=== PATIENT | female | born 1975 | race Caucasian/White ===

== ENCOUNTER → 2016-08-15 | Outpatient (REF) ==
[~2016-08-15] MED LIST: ATARAX 25MG25 MG/TAB PO; CELEXA10 MG PO; DEPO-PROVER150 MG/M1 IM; FOLIC ACID 11 MG/TA1 PO; MULTI VITAMINS1 TAB PO; PREDNISOLO15 MG/5 M3 PO; PRILOSEC10 MG PO; SODIUM BICARBO650 MG PO; THIAMINE 1100 MG/TAB PO
== END ==
LOC: WSOH 14:03
DX: Z23 Encounter for immunization (principal)

== ENCOUNTER → 2016-09-05 | Outpatient (REF) | LOC: WSOH 09:36 | DX: Z02.89 Encounter for other administrative examinations (principal) ==

== ENCOUNTER 2016-10-10 17:15 | Inpatient (IN) | payer OTHER ==
[2016-10-10] VITALS (148 sets, daily range): BP systolic 115–122; BP diastolic 70–72; PULSE 102–104; TEMP 99.3; O2SAT 96–100
[~2016-10-10] VITALS: Ht 167.6 cm; Wt 73.6 kg
[~2016-10-10 17:15] MED LIST changes: -CELEXA10 MG PO; -MULTI VITAMINS1 TAB PO; -THIAMINE 1100 MG/TAB PO
[2016-10-10 17:58] LABS: BASO % 0.2 % (0.0-2.0); EOS % 0.2 % (0-4.0); GRAN # 11.3 (1.4-6.5); GRAN % 85.9 % (42.2-75.2); HEMOGLOBIN 12.8 g/dl (12.5-16.0); LYMPH # 0.9 (1.2-3.4); LYMPH % 6.9 % (20.0-51.0); MEAN CELL VOLUME 94 fl (80.0-100.0); MEAN CORPUSCULAR HEMOGLOBIN 33 pg (27.0-31.0); MEAN CORPUSCULAR HGB CONC 36 g/dl (33.0-37.0); MEAN PLATELET VOLUME 10.1 fl (7.4-10.4); MONO # 0.8 (0.1-0.6); MONO % 6.2 % (1.7-9.3); PLATELET COUNT 116 K/mm3 (130-400); RED BLOOD COUNT 3.83 M/mm3 (4.10-5.30); REDCELL DISTRIBUTION WIDTH-CV 12.3 % (11.5-14.5); WHITE BLOOD COUNT 13.1 K/mm3 (4.8-10.8)
[2016-10-10 17:59] LABS: HEMATOCRIT 35.8 % (37.0-47.0)
[2016-10-10 18:02] LABS: INR 1.4 (0.8-3.0); PROTHROMBIN TIME 15.3 SECONDS (9.7-12.8)
[2016-10-10 18:12] LABS: ADJUSTED CALCIUM 8.2 mg/dL (8.4-10.2); ALANINE AMINOTRANSFERASE 63 U/L (9-52); ALBUMIN 4.9 gm/dL (3.5-5.0); ALKALINE PHOSPHATASE 114 U/L (50-136); ANION GAP 22 mmol/L (7-16); BLOOD UREA NITROGEN 26 mg/dL (7-17); CALCIUM 8.9 mg/dL (8.4-10.2); CARBON DIOXIDE 25 mmol/L (22-30); CREATININE, serum 0.79 mg/dL (0.52-1.25); GLUCOSE 127 mg/dL (74-106); SODIUM 128 mmol/L (137-145); TOTAL PROTEIN 8.6 gm/dL (6.4-8.2)
[2016-10-10 18:14] LABS: ACETAMINOPHEN < 10 ug/mL (10-30); POTASSIUM 2.4 mmol/L (3.4-5.0); SALICYLATE < 1.0 mg/dL
[2016-10-10 18:15] LABS: CHLORIDE 82 mmol/L (98-107)
[2016-10-10 18:23] LABS: VENOUS BLOOD GAS BE 7.5 (-4-4); VENOUS BLOOD GAS SAO2 25.7 % (60-80)
[2016-10-10 18:24] LABS: VENOUS BLOOD GAS SITE VENIPUNCTURE
[2016-10-10 20:42] LABS: MAGNESIUM 1.2 mg/dL (1.6-2.3)
[2016-10-10] MEDS ORDERED: CELEXA10 MG PO (21:41)
[2016-10-10] MEDS ORDERED: MULTI VITAMINS1 TAB PO (21:41)
[2016-10-11] VITALS (938 sets, daily range): BP systolic 104–131; BP diastolic 72–97; PULSE 73–98; TEMP 98–99.5; O2SAT 81–100
[2016-10-11 00:57] LABS: AMPHETAMINE URINE NEGATIVE; BARBITURATES URINE NEGATIVE; BENZODIAZEPINES URINE POSITIVE; BUPRENORPHINE URINE NEGATIVE; METHADONE URINE NEGATIVE; OPIATES URINE NEGATIVE; OXYCODONE URINE NEGATIVE; PHENCYCLIDINE URINE NEGATIVE; PROPOXYPHENE URINE NEGATIVE; THC CANNABINOIDS URINE NEGATIVE
[2016-10-11 06:07] LABS: BASO % 0.1 % (0.0-2.0); EOS % 0.4 % (0-4.0); GRAN # 6.7 (1.4-6.5); GRAN % 78.7 % (42.2-75.2); LYMPH # 1.1 (1.2-3.4); MEAN CELL VOLUME 98 fl (80.0-100.0); MEAN CORPUSCULAR HGB CONC 34 g/dl (33.0-37.0); MEAN PLATELET VOLUME 10.4 fl (7.4-10.4); MONO # 0.6 (0.1-0.6); MONO % 7.2 % (1.7-9.3); PLATELET COUNT 97 K/mm3 (130-400); RED BLOOD COUNT 3.12 M/mm3 (4.10-5.30); REDCELL DISTRIBUTION WIDTH-CV 12.4 % (11.5-14.5); WHITE BLOOD COUNT 8.5 K/mm3 (4.8-10.8)
[2016-10-11 06:12] LABS: HEMATOCRIT 30.6 % (37.0-47.0); HEMOGLOBIN 10.4 g/dl (12.5-16.0); MEAN CORPUSCULAR HEMOGLOBIN 33 pg (27.0-31.0)
[2016-10-11 06:18] LABS: CALCIUM 8.1 mg/dL (8.4-10.2); CREATININE, serum 0.49 mg/dL (0.52-1.25); MAGNESIUM 2.7 mg/dL (1.6-2.3); POTASSIUM 3.1 mmol/L (3.4-5.0)
[2016-10-11 19:18] LABS: HEPATITIS B SURFACE AB-QL Indeterminate (())
[2016-10-12] VITALS (280 sets, daily range): BP systolic 119–145; BP diastolic 78–113; PULSE 71–106; TEMP 97.7–99.6; O2SAT 87–100
[2016-10-12 06:42] LABS: ALBUMIN 3.8 gm/dL (3.5-5.0); CALCIUM 8.7 mg/dL (8.4-10.2); CREATININE, serum 0.46 mg/dL (0.52-1.25); MAGNESIUM 1.7 mg/dL (1.6-2.3); POTASSIUM 3.2 mmol/L (3.4-5.0); TOTAL PROTEIN 6.8 gm/dL (6.4-8.2)
[2016-10-12 07:05] LABS: BILIRUBIN,TOTAL 2.1 mg/dL (0.0-1.0)
[2016-10-13 02:45] VITALS: BP 137/83; PULSE 91; TEMP 99.4
[2016-10-13 04:27] VITALS: BP 131/84; PULSE 87; TEMP 99.3
[2016-10-13 06:12] VITALS: BP 134/87; PULSE 94; TEMP 98.8
[2016-10-13 06:55] LABS: ALBUMIN 3.7 gm/dL (3.5-5.0); BILIRUBIN,DIRECT 0.8 mg/dL (0.0-0.4); BILIRUBIN,TOTAL 1.4 mg/dL (0.0-1.0); CALCIUM 8.8 mg/dL (8.4-10.2); CREATININE, serum 0.47 mg/dL (0.52-1.25); POTASSIUM 3.1 mmol/L (3.4-5.0); TOTAL PROTEIN 6.8 gm/dL (6.4-8.2)
[2016-10-13 08:37] VITALS: BP 130/87; PULSE 90; TEMP 98.3
[2016-10-13 10:33] VITALS: BP 134/85; PULSE 84; TEMP 98.6
[2016-10-13 11:55] VITALS: BP 135/88; PULSE 82; TEMP 98.6
[2016-10-13] MEDS ORDERED: FOLIC ACID 11 MG/TA1 PO (13:00)
[2016-10-13] MEDS ORDERED: THIAMINE 1100 MG/TAB PO (13:01)
== END 2016-10-13 14:29 | disposition home or self-care (01) | DRG 897 ==
LOC: COL.ER 17:15 → IMCU 20:24 → MEDICAL 20:24
PROVIDERS: Emergency Medicine; Family Medicine
DX: F10.239 Alcohol dependence with withdrawal, unspecified (principal); Y90.0 Blood alcohol level of less than 20 mg/100 ml; K70.30 Alcoholic cirrhosis of liver without ascites; E87.6 Hypokalemia
CPT/HCPCS: 99223-AI; 99232-AI; 99233-AI; 99239; J1650; J2543; J3360; J3411; J3475; J3480; J7030; J7050; Q9967

== ENCOUNTER 2018-05-05 12:49 | Inpatient (IN) | payer SELFPAY ==
[~2018-05-05] VITALS: Ht 167.6 cm; Wt 98.6 kg
[2018-05-05] VITALS (248 sets, daily range): BP systolic 85–115; BP diastolic 43–61; PULSE 84–103; TEMP 97.6–99; O2SAT 70–100
[~2018-05-05 12:49] MED LIST changes: +CELEXA10 MG PO; +MULTI VITAMINS1 TAB PO; +THIAMINE 1100 MG/TAB PO
[2018-05-05 13:35] LABS: BASO % 0.3 % (0.0-2.0); EOS # 0.2 (0.0-0.7); EOS % 1.5 % (0-4.0); GRAN # 9.5 (1.4-6.5); GRAN % 77.3 % (42.2-75.2); LYMPH # 1.1 (1.2-3.4); LYMPH % 8.9 % (20.0-51.0); MEAN CELL VOLUME 91 fl (80.0-100.0); MEAN CORPUSCULAR HGB CONC 29 g/dl (33.0-37.0); MONO # 1.4 (0.1-0.6); MONO % 11.4 % (1.7-9.3); PLATELET COUNT 211 K/mm3 (130-400); RED BLOOD COUNT 1.73 M/mm3 (4.10-5.30); REDCELL DISTRIBUTION WIDTH-CV 24.4 % (11.5-14.5)
[2018-05-05 13:37] LABS: INR 2.1 (0.8-3.0); PROTHROMBIN TIME 23.7 SECONDS (9.7-12.8)
[2018-05-05 13:41] LABS: HEMATOCRIT 15.7 % (37.0-47.0); HEMOGLOBIN 4.5 g/dl (12.5-16.0); MEAN CORPUSCULAR HEMOGLOBIN 26 pg (27.0-31.0)
[2018-05-05] MEDS ORDERED: PRILOSEC 20MG20 MG PO (13:41)
[2018-05-05 13:42] LABS: BILIRUBIN,TOTAL 12.4 mg/dL (0.0-1.0); CALCIUM 8.1 mg/dL (8.4-10.2); CREATININE, serum 0.73 mg/dL (0.52-1.25); TOTAL PROTEIN 7.4 gm/dL (6.4-8.2)
[2018-05-05 13:43] LABS: POTASSIUM 2.6 mmol/L (3.4-5.0)
[2018-05-05 13:51] LABS: HEMOGLOBIN 4.5 g/dl (12.5-16.0)
[2018-05-05 15:18] LABS: PERITONEAL -POLYMORPHONUCLEAR 13.3 % (0-25); PERITONEAL FLUID RBC 0 /mm3 (0-0)
[2018-05-05] MEDS ORDERED: CELEXA10 MG PO (19:41)
[2018-05-05 23:42] LABS: RETIC # 0.06 M/mm3 (0.02-0.16); RETIC % 3.8 % (0.5-3.52)
[2018-05-06] VITALS (438 sets, daily range): BP systolic 96–127; BP diastolic 49–77; PULSE 77–98; TEMP 97.6–99.1; O2SAT 81–100
[2018-05-06 02:10] LABS: HEMATOCRIT 19.4 % (37.0-47.0)
[2018-05-06 02:28] LABS: POTASSIUM 2.6 mmol/L (3.4-5.0)
[2018-05-06 08:26] LABS: BASO # 0.1 (0.0-0.2); BASO % 0.9 % (0.0-2.0); EOS # 0.2 (0.0-0.7); EOS % 1.4 % (0-4.0); GRAN # 8.9 (1.4-6.5); GRAN % 78.7 % (42.2-75.2); HEMATOCRIT 22.1 % (37.0-47.0); LYMPH # 1.1 (1.2-3.4); LYMPH % 9.7 % (20.0-51.0); MEAN CELL VOLUME 86 fl (80.0-100.0); MEAN CORPUSCULAR HEMOGLOBIN 27 pg (27.0-31.0); MEAN CORPUSCULAR HGB CONC 32 g/dl (33.0-37.0); MEAN PLATELET VOLUME 10.4 fl (7.4-10.4); MONO % 8.7 % (1.7-9.3); PLATELET COUNT 182 K/mm3 (130-400); RED BLOOD COUNT 2.56 M/mm3 (4.10-5.30); REDCELL DISTRIBUTION WIDTH-CV 19.9 % (11.5-14.5)
[2018-05-06 08:30] LABS: PROTHROMBIN TIME 22.4 SECONDS (9.7-12.8)
[2018-05-06 08:44] LABS: ALBUMIN 2.8 gm/dL (3.5-5.0); BILIRUBIN,TOTAL 14.4 mg/dL (0.0-1.0); CALCIUM 7.7 mg/dL (8.4-10.2); CREATININE, serum 0.6 mg/dL (0.52-1.25); POTASSIUM 3.1 mmol/L (3.4-5.0)
[2018-05-06 13:28] LABS: HEMATOCRIT 21.1 % (37.0-47.0); HEMOGLOBIN 6.6 g/dl (12.5-16.0)
[2018-05-06 20:50] LABS: HEMATOCRIT 30.1 % (37.0-47.0); HEMOGLOBIN 9.5 g/dl (12.5-16.0)
[2018-05-07] VITALS (7 sets, daily range): BP systolic 101–133; BP diastolic 54–67; PULSE 69–96; TEMP 97.5–99.2
[2018-05-07 09:14] LABS: HEMATOCRIT 28.9 % (37.0-47.0); HEMOGLOBIN 9.1 g/dl (12.5-16.0); MEAN CELL VOLUME 88 fl (80.0-100.0); MEAN CORPUSCULAR HEMOGLOBIN 28 pg (27.0-31.0); MEAN CORPUSCULAR HGB CONC 32 g/dl (33.0-37.0); MEAN PLATELET VOLUME 10.4 fl (7.4-10.4); PLATELET COUNT 269 K/mm3 (130-400); RED BLOOD COUNT 3.27 M/mm3 (4.10-5.30); REDCELL DISTRIBUTION WIDTH-CV 20.2 % (11.5-14.5)
[2018-05-07 09:20] LABS: CALCIUM 8.1 mg/dL (8.4-10.2); CREATININE, serum 0.62 mg/dL (0.52-1.25); MAGNESIUM 1.7 mg/dL (1.6-2.3); PHOSPHOROUS 2.7 mg/dL (2.5-4.5); POTASSIUM 3.5 mmol/L (3.4-5.0)
[2018-05-07 09:31] LABS: ANISOCYTOSIS 3+; BAND 14 % (0-10); BASOPHIL 1 % (0-2); LYMPHOCYTE 8 % (20.0-51.0); NEUTROPHILS 72 % (42.0-75.2); PLATELET ESTIMATE NORMAL (NORMAL)
[2018-05-08] VITALS (10 sets, daily range): BP systolic 91–115; BP diastolic 49–550; PULSE 76–100; TEMP 97.5–99.4
[2018-05-08 08:34] LABS: MEAN CELL VOLUME 89 fl (80.0-100.0); MEAN CORPUSCULAR HGB CONC 32 g/dl (33.0-37.0); MEAN PLATELET VOLUME 10.7 fl (7.4-10.4); PLATELET COUNT 201 K/mm3 (130-400); RED BLOOD COUNT 2.62 M/mm3 (4.10-5.30); REDCELL DISTRIBUTION WIDTH-CV 20.1 % (11.5-14.5)
[2018-05-08 08:40] LABS: HEMATOCRIT 23.2 % (37.0-47.0); HEMOGLOBIN 7.3 g/dl (12.5-16.0); MEAN CORPUSCULAR HEMOGLOBIN 28 pg (27.0-31.0)
[2018-05-08 08:50] LABS: ALBUMIN 2.5 gm/dL (3.5-5.0); BILIRUBIN,TOTAL 11.1 mg/dL (0.0-1.0); CALCIUM 7.7 mg/dL (8.4-10.2); CREATININE, serum 0.69 mg/dL (0.52-1.25); POTASSIUM 3.5 mmol/L (3.4-5.0); TOTAL PROTEIN 6.4 gm/dL (6.4-8.2)
[2018-05-08 13:52] LABS: HEMATOCRIT 23.1 % (37.0-47.0); HEMOGLOBIN 7.3 g/dl (12.5-16.0)
[2018-05-09] VITALS (7 sets, daily range): BP systolic 109–131; BP diastolic 63–69; PULSE 86–99; TEMP 97.3–99.4
[2018-05-09 06:20] LABS: BASO # 0.1 (0.0-0.2); BASO % 0.4 % (0.0-2.0); EOS # 0.3 (0.0-0.7); EOS % 2.5 % (0-4.0); GRAN # 9.9 (1.4-6.5); GRAN % 80.9 % (42.2-75.2); LYMPH # 1.1 (1.2-3.4); LYMPH % 8.6 % (20.0-51.0); MEAN CELL VOLUME 89 fl (80.0-100.0); MEAN CORPUSCULAR HGB CONC 32 g/dl (33.0-37.0); MEAN PLATELET VOLUME 9.8 fl (7.4-10.4); MONO # 0.8 (0.1-0.6); MONO % 6.9 % (1.7-9.3); PLATELET COUNT 160 K/mm3 (130-400); RED BLOOD COUNT 2.67 M/mm3 (4.10-5.30); REDCELL DISTRIBUTION WIDTH-CV 20.7 % (11.5-14.5); RETIC # 0.07 M/mm3 (0.02-0.16); RETIC % 2.6 % (0.5-3.52)
[2018-05-09 06:28] LABS: HEMATOCRIT 23.8 % (37.0-47.0); HEMOGLOBIN 7.5 g/dl (12.5-16.0); MEAN CORPUSCULAR HEMOGLOBIN 28 pg (27.0-31.0)
[2018-05-09 06:33] LABS: POTASSIUM 3.7 mmol/L (3.4-5.0)
[2018-05-09 14:44] LABS: FOLATE (FOLIC ACID) 10.5 ng/mL (7.0-31.4)
[2018-05-10] VITALS (7 sets, daily range): BP systolic 107–119; BP diastolic 57–66; PULSE 91–98; TEMP 98.3–99.4
[2018-05-10 06:59] LABS: MEAN CELL VOLUME 91 fl (80.0-100.0); MEAN CORPUSCULAR HGB CONC 31 g/dl (33.0-37.0); PLATELET COUNT 150 K/mm3 (130-400); RED BLOOD COUNT 2.66 M/mm3 (4.10-5.30); REDCELL DISTRIBUTION WIDTH-CV 20.8 % (11.5-14.5)
[2018-05-10 07:03] LABS: HEMATOCRIT 24.1 % (37.0-47.0); HEMOGLOBIN 7.5 g/dl (12.5-16.0); MEAN CORPUSCULAR HEMOGLOBIN 28 pg (27.0-31.0)
[2018-05-10 07:11] LABS: CALCIUM 7.8 mg/dL (8.4-10.2); CREATININE, serum 0.53 mg/dL (0.52-1.25); POTASSIUM 3.5 mmol/L (3.4-5.0)
[2018-05-10 13:29] LABS: INR 1.8 (0.8-3.0); PROTHROMBIN TIME 20.5 SECONDS (9.7-12.8)
[2018-05-10] MEDS ORDERED: DUO-KAPS1 CAP PO (17:07)
[2018-05-10] MEDS ORDERED: FOLIC ACID 11 MG/TA1 PO (17:07)
[2018-05-10] MEDS ORDERED: THIAMINE 1100 MG/TAB PO (17:07)
[2018-05-10] MEDS ORDERED: QUESTRAN LI4 GM/5 GM PO (17:10)
[2018-05-10] MEDS ORDERED: LACTULOSE10 GM/153 PO (17:11)
[2018-05-10] MEDS ORDERED: FERROUS SU325 MG/TAB PO (17:12)
== END 2018-05-10 20:35 | disposition home or self-care (01) | DRG 433 ==
LOC: COL.ER 12:49 → ICU 14:57 → MEDICAL 05-06 20:03
PROVIDERS: Emergency Medicine; Hospitalist; Internal Medicine; Physician Assistant
PROC: 0W9G3ZZ Drainage of Peritoneal Cavity, Percutaneous Approach (ICD-10-PCS; 2018-05-05)
PROC: 0DJ08ZZ Inspection of Upper Intestinal Tract, Via Natural or Artificial Opening Endoscopic (ICD-10-PCS; 2018-05-07)
PROC: 0DBP8ZX Excision of Rectum, Via Natural or Artificial Opening Endoscopic, Diagnostic (ICD-10-PCS; 2018-05-07)
PROC: 0W9G3ZZ Drainage of Peritoneal Cavity, Percutaneous Approach (ICD-10-PCS; principal; 2018-05-10)
DX: K70.31 Alcoholic cirrhosis of liver with ascites (principal); E87.1 Hypo-osmolality and hyponatremia; I85.10 Secondary esophageal varices without bleeding; F10.10 Alcohol abuse, uncomplicated; E87.6 Hypokalemia; Z87.891 Personal history of nicotine dependence; D50.9 Iron deficiency anemia, unspecified; K62.1 Rectal polyp
CPT/HCPCS: 99223-AI; 99232-AI; 99233-AI; C9113; J0696; J2250; J2405; J2704; J3010; J3480; J7030; J7120; J7510; P9016

== ENCOUNTER 2018-06-11 08:47 | Emergency (ER) | payer OTHER ==
[~2018-06-11] VITALS: Ht 167.6 cm; Wt 83.2 kg
[~2018-06-11 08:47] MED LIST changes: +DUO-KAPS1 CAP PO; +FERROUS SU325 MG/TAB PO; +LACTULOSE10 GM/153 PO; +PRILOSEC 20MG20 MG PO; +QUESTRAN LI4 GM/5 GM PO
[2018-06-11] MEDS ORDERED: ALDACTONE50 MG PO (09:20)
[2018-06-11 09:41] LABS: BASO # 0.1 (0.0-0.2); BASO % 0.7 % (0.0-2.0); EOS # 0.2 (0.0-0.7); EOS % 2.5 % (0-4.0); GRAN # 7.1 (1.4-6.5); GRAN % 75.1 % (42.2-75.2); HEMOGLOBIN 8.4 g/dl (12.5-16.0); LYMPH # 1.3 (1.2-3.4); LYMPH % 13.3 % (20.0-51.0); MEAN CELL VOLUME 93 fl (80.0-100.0); MEAN CORPUSCULAR HEMOGLOBIN 31 pg (27.0-31.0); MEAN CORPUSCULAR HGB CONC 34 g/dl (33.0-37.0); MEAN PLATELET VOLUME 10.8 fl (7.4-10.4); MONO # 0.7 (0.1-0.6); MONO % 7.8 % (1.7-9.3); PLATELET COUNT 167 K/mm3 (130-400); REDCELL DISTRIBUTION WIDTH-CV 22.5 % (11.5-14.5)
[2018-06-11 09:44] LABS: INR 1.5 (0.8-3.0); PROTHROMBIN TIME 17.6 SECONDS (9.7-12.8)
[2018-06-11 09:51] LABS: ALBUMIN 3.5 gm/dL (3.5-5.0); BILIRUBIN,TOTAL 6.9 mg/dL (0.0-1.0); CALCIUM 8.3 mg/dL (8.4-10.2); CREATININE, serum 0.61 mg/dL (0.52-1.25); POTASSIUM 3.7 mmol/L (3.4-5.0); TOTAL PROTEIN 7.6 gm/dL (6.4-8.2)
[2018-06-11] MEDS ORDERED: CONSTULOSE 20G/30ML PO (10:26)
[2018-06-11 10:38] VITALS: BP 125/78; PULSE 101; TEMP 98.2
== END 2018-06-11 10:38 | disposition home or self-care (01) ==
LOC: COL.ER 08:47
PROVIDERS: Emergency Medicine
DX: K70.30 Alcoholic cirrhosis of liver without ascites (principal)
CPT/HCPCS: J1940

== ENCOUNTER 2018-10-06 04:54 | Inpatient (IN) | payer OTHER ==
[~2018-10-06] VITALS: Ht 165.1 cm; Wt 72.5 kg
[2018-10-06] VITALS (362 sets, daily range): BP systolic 89–132; BP diastolic 35–84; PULSE 89–96; TEMP 97.6–98.4; O2SAT 53–100
[~2018-10-06 04:54] MED LIST changes: +ALDACTONE50 MG PO; +CONSTULOSE 20G/30ML PO
[2018-10-06 05:27] LABS: HEMATOCRIT 35.1 % (37.0-47.0); MEAN CELL VOLUME 91 fl (80.0-100.0); MEAN CORPUSCULAR HEMOGLOBIN 34 pg (27.0-31.0); MEAN CORPUSCULAR HGB CONC 37 g/dl (33.0-37.0); MEAN PLATELET VOLUME 11.5 fl (7.4-10.4); PLATELET COUNT 144 K/mm3 (130-400); RED BLOOD COUNT 3.86 M/mm3 (4.10-5.30); REDCELL DISTRIBUTION WIDTH-CV 14.1 % (11.5-14.5)
[2018-10-06 05:42] LABS: ALANINE AMINOTRANSFERASE 47 U/L (9-52); ALBUMIN 4.8 gm/dL (3.5-5.0); ALKALINE PHOSPHATASE 116 U/L (50-136); AST,SGOT 168 U/L (15-37); BILIRUBIN,TOTAL 14.3 mg/dL (0.0-1.0); BLOOD UREA NITROGEN 116 mg/dL (7-17); CALCIUM 7.1 mg/dL (8.4-10.2); CARBON DIOXIDE 29 mmol/L (22-30); GLUCOSE 134 mg/dL (74-106); TOTAL PROTEIN 9.5 gm/dL (6.4-8.2)
[2018-10-06 05:52] LABS: ALCOHOL(ethanol),MEDICAL < 10 mg/dL; CHLORIDE < 50 mmol/L (98-107); POTASSIUM 2.6 mmol/L (3.4-5.0); SODIUM 119 mmol/L (137-145)
[2018-10-06 06:28] LABS: BAND 26 % (0-10); EOSINOPHIL 3 % (0-4); LYMPHOCYTE 7 % (20.0-51.0); METAMYELOCYTE 1 % (0-0); NEUTROPHILS 42 % (42.0-75.2); PLATELET ESTIMATE NORMAL (NORMAL)
[2018-10-06 06:43] LABS: CREATININE, serum 9.73 mg/dL (0.52-1.25)
[2018-10-06 07:07] LABS: HEMATOCRIT 27.9 % (37.0-47.0); HEMOGLOBIN 10.2 g/dl (12.5-16.0)
[2018-10-06 07:14] LABS: MAGNESIUM 1.5 mg/dL (1.6-2.3)
[2018-10-06 07:20] LABS: CALCIUM 5.7 mg/dL (8.4-10.2); POTASSIUM 2.4 mmol/L (3.4-5.0)
[2018-10-06 07:38] LABS: INR 2.6 (0.8-3.0)
[2018-10-06 07:41] LABS: PARTIAL THROMBOPLASTIN TIME 38.3 SECONDS (26.0-37.0)
[2018-10-06 07:57] LABS: CREATININE, serum 8.61 mg/dL (0.52-1.25)
--- NOTE | 2018-10-06 10:21 | NUR ---
Telephone report recieved from DAPHNEY Dorantes (Emergency Department). Pt went to endoscopy lab at 0931
--- NOTE | 2018-10-06 10:34 | NUR ---
Pt arrived to ICU 1 on cart, transfered via slideboard, all lines remain intact. MD Yissel notified of pt arrival. Pt hypotensive, with altered mental status, able to respond slowly, oriented to self, , and that she is in hospital. Pt's parents David and Pat at bedside, with many concerns. 1107 MD Yissel at bedside. DNR code status established. 1215 report given to DAPHNEY Sierra
[2018-10-06] MEDS ORDERED: ALEVE 220MG220 MG PO (11:32)
--- NOTE | 2018-10-06 12:15 | NUR ---
Report received from DAPHNEY Martinez. Patient currently lying in bed with no c/o. VS Hypotensive, HR 80s-90s. Bowling catheter to dependent drainage with no urine in urometer. Dr. Dey gives verbal order for NS bolus 1Liter. Will administer and continue to monitor.
[2018-10-06 12:19] LABS: ARTERIAL BLD GAS O2 SATURATION 98.1 % (92-100); ARTERIAL BLD GAS TCO2 CT 26.2; ARTERIAL BLOOD GAS BASE EXCESS 1.2 (-2-2); ARTERIAL BLOOD GAS PCO2 36.6 mmHg (35-45); ARTERIAL BLOOD GAS pH 7.45 (7.35-7.45)
[2018-10-06 12:39] LABS: INR 2.2 (0.8-3.0); PROTHROMBIN TIME 25.5 SECONDS (9.7-12.8)
[2018-10-06 12:42] LABS: PHOSPHOROUS 7.6 mg/dL (2.5-4.5)
[2018-10-06 12:43] LABS: SALICYLATE < 1.0 mg/dL
[2018-10-06 12:57] LABS: TROPONIN-I 0.128 ng/mL (0.000-0.035)
--- NOTE | 2018-10-06 13:00 | NUR ---
Patient's parents come back from lunch. They are updated on plan of care. Questions answered.
[2018-10-06] MEDS ORDERED: CELEXA 20MG20 MG/TAB PO (13:13)
[2018-10-06] MEDS ORDERED: REQUIP 0.5MG0.5 MG PO (13:13)
[2018-10-06] MEDS ORDERED: ALDACTONE50 MG PO (13:14)
[2018-10-06] MEDS ORDERED: MULTI VITAMINS1 TAB PO (13:14)
[2018-10-06] MEDS ORDERED: FERROUS GL325 MG/TAB (13:15)
[2018-10-06] MEDS ORDERED: PRILOSEC 20MG20 MG PO (13:17)
[2018-10-06] MEDS ORDERED: NATURE'S BLEND100 M2 PO (13:17)
[2018-10-06] MEDS ORDERED: FOLIC ACID0.8 MG PO (13:17)
[2018-10-06] MEDS ORDERED: ALAVERT10 M1 PO (13:18)
[2018-10-06] MEDS ORDERED: MELATONIN5 M1 SL (13:18)
--- NOTE | 2018-10-06 13:20 | NUR ---
Patient's Parents bring in bag of medication from the patient's home supply. Patient is unable to respond appropriately when asked about dosage and frequency of these medications and supplements. Will enter medication/supplement names according to the bottles and dosage of pill on bottle, but unable to record last dose taken or frequency. Will also flag for provider to review.
[2018-10-06 13:57] LABS: COLLECTION METHOD CLEAN CATCH
[2018-10-06 14:17] LABS: AMORPHOUS CRYSTAL Present /uL; HYALINE CAST >12 /lpf; MUCOUS Present /lpf; PH 5 (5-8); URINE APPEARANCE Cloudy; URINE BACTERIA None Seen /hpf; URINE BILIRUBIN Negative (NEGATIVE); URINE BLOOD 3+ (NEGATIVE); URINE COLOR Amber; URINE GLUCOSE 2+ (NEGATIVE); URINE KETONE Negative (NEGATIVE); URINE LEUKOCYTE ESTERASE Trace (NEGATIVE); URINE NITRATE Negative (NEGATIVE); URINE PROTEIN(semi-quant) 2+ (NEGATIVE); URINE RBC >50 /hpf; URINE UROBILINOGEN >=4.0 mg/dL (NEGATIVE)
[2018-10-06 14:27] LABS: TRICYCLIC ANTIDEPRESS URINE NEGATIVE
[2018-10-06 15:59] LABS: HEMATOCRIT 24.1 % (37.0-47.0); HEMOGLOBIN 8.8 g/dl (12.5-16.0)
[2018-10-06 16:31] LABS: POTASSIUM 2.9 mmol/L (3.4-5.0)
[2018-10-06 16:32] LABS: CALCIUM 5.9 mg/dL (8.4-10.2)
[2018-10-06 16:33] LABS: CREATININE, serum 7.72 mg/dL (0.52-1.25)
--- NOTE | 2018-10-06 17:10 | NUR ---
Dr. Davis rounds on patient at this time. He is updated on patient's situation. He is updated with recent recommendations received from [facility] Dr. Thibodeaux. Dr. Davis gives verbal order to proceed with recommendations from [facility] doctor. Will continue to monitor.
--- NOTE | 2018-10-06 18:15 | NUR ---
Blood transfusion initiated. Patient shows no s/s reaction. VS remain stable with Levophed use. Patient is afebrile. Will continue to monitor closely.
--- NOTE | 2018-10-06 19:47 | NUR ---
REPORT GIVEN TO DAPHNEY SMITH. IV DRIPS AND FLUIDS REVIEWED. PRBC INFUSION FINISHES WHILE WE ARE IN ROOM DOING REPORT. PATIENT AWAKE AND ALERT, BUT STILL VERY CONFUSED. PLAN OF CARE REVIEWED. CALL LIGHT WITHIN REACH FOR PATIENT. CARE TURNED OVER AT THIS TIME.
--- NOTE | 2018-10-06 19:51 | NUR ---
Patient assessment completed and charted at this time, please see documentation for details. Patient resting in bed, alert and oriented. Slow to answer, but appropriate. Will continue to monitor and assess.
[2018-10-06 20:51] LABS: CREATININE, serum 7.41 mg/dL (0.52-1.25); POTASSIUM 2.8 mmol/L (3.4-5.0)
[2018-10-06 21:17] LABS: HEMATOCRIT 26.1 % (37.0-47.0); HEMOGLOBIN 9.2 g/dl (12.5-16.0)
[2018-10-07] VITALS (728 sets, daily range): BP systolic 114–133; BP diastolic 51–66; PULSE 87–109; TEMP 97.9–98.6; O2SAT 82–100
--- NOTE | 2018-10-07 00:15 | NUR ---
Assessment completed at this time. Upon entering room, patient had broken arriola catheter tubing, stating "she didn't need it anymore." Explained importance of measuring urine output. Different arriola reinserted, mitts in place at this time.
[2018-10-07 00:26] LABS: CALCIUM 6.5 mg/dL (8.4-10.2)
[2018-10-07 00:59] LABS: CREATININE, serum 7.33 mg/dL (0.52-1.25); POTASSIUM 2.7 mmol/L (3.4-5.0)
[2018-10-07 04:37] LABS: ARTERIAL BLD GAS O2 SATURATION 95.5 % (92-100); ARTERIAL BLD GAS TCO2 CT 21.9; ARTERIAL BLOOD GAS BASE EXCESS -2.5 (-2-2); ARTERIAL BLOOD GAS PCO2 31.3 mmHg (35-45); ARTERIAL BLOOD GAS pH 7.44 (7.35-7.45)
[2018-10-07 05:34] LABS: MEAN CELL VOLUME 95 fl (80.0-100.0); MEAN CORPUSCULAR HGB CONC 35 g/dl (33.0-37.0); MEAN PLATELET VOLUME 10.7 fl (7.4-10.4); PLATELET COUNT 78 K/mm3 (130-400); RED BLOOD COUNT 2.46 M/mm3 (4.10-5.30); REDCELL DISTRIBUTION WIDTH-CV 15.2 % (11.5-14.5)
[2018-10-07 05:35] LABS: HEMOGLOBIN 8.2 g/dl (12.5-16.0); MEAN CORPUSCULAR HEMOGLOBIN 33 pg (27.0-31.0)
[2018-10-07 05:36] LABS: HEMATOCRIT 23.3 % (37.0-47.0)
[2018-10-07 05:42] LABS: INR 1.8 (0.8-3.0); PROTHROMBIN TIME 20.8 SECONDS (9.7-12.8)
[2018-10-07 05:46] LABS: ALBUMIN 3.5 gm/dL (3.5-5.0); BILIRUBIN,TOTAL 8.9 mg/dL (0.0-1.0); CALCIUM 6.3 mg/dL (8.4-10.2); PHOSPHOROUS 5.3 mg/dL (2.5-4.5); TOTAL PROTEIN 6.5 gm/dL (6.4-8.2)
[2018-10-07 06:09] LABS: CREATININE, serum 5.65 mg/dL (0.52-1.25)
[2018-10-07 06:10] LABS: POTASSIUM 2.3 mmol/L (3.4-5.0)
[2018-10-07 07:20] LABS: BAND 30 % (0-10); LYMPHOCYTE 4 % (20.0-51.0); NEUTROPHILS 48 % (42.0-75.2)
[2018-10-07 07:22] LABS: HYPOCHROMIA 1+
[2018-10-07 07:23] LABS: PLATELET ESTIMATE NORMAL (NORMAL)
--- NOTE | 2018-10-07 08:58 | NUR ---
Initial visit; Patient's family thanked Allergist/Pediatric Pulmonologist for looking in on Geetha and letting them know of the availability of Spiritual Care around the clock at [place]. Allergist/Pediatric Pulmonologist will continue to look in on them.
--- NOTE | 2018-10-07 10:14 | NUR ---
KEEGAN and KEEGAN hutchins met with the patient's parents, Antonia, to discuss discharge plan. 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 The patient's PCP is Dr. Ran Oneal and she receives her medications at [facility]. The patient's parents report that the patient did have difficulties affording her meds. The patient's parents report that the patient does not have a DPOA-HC completed and that she does not have any children or is . KEEGAN and KEEGAN hutchins provided support and will continue to follow.
[2018-10-07 13:32] LABS: CALCIUM 7.6 mg/dL (8.4-10.2)
[2018-10-07 13:43] LABS: CREATININE, serum 4.47 mg/dL (0.52-1.25); POTASSIUM 2.1 mmol/L (3.4-5.0)
[2018-10-07 16:12] LABS: CALCIUM 8.4 mg/dL (8.4-10.2)
[2018-10-07 16:21] LABS: CREATININE, serum 4.13 mg/dL (0.52-1.25); POTASSIUM 2.4 mmol/L (3.4-5.0)
--- NOTE | 2018-10-07 20:00 | NUR ---
PT AWARE OF PERSON AND DATE OF ONLY. UNABLE TO GIVE CORRECT MONTH, YEAR, AND PLACE. PT HAS BRUISING TO RIGHT HIP, RIGHT LATERAL AND LOWER BUTTOCK, AND BILAT KNEES. PT IS INTERMITTENTLY RESTLESS - MANAGED TO REMOVE MITTS AND FOLLOWING BLOOD PRESSURE CUFF. MITTS REPLACED AND BP CUFF PUT BACK ON. PT REDIRECTED. PT CONSISTENTLY GRINDING TEETH.
[2018-10-07 20:53] LABS: CALCIUM 8.5 mg/dL (8.4-10.2); CREATININE, serum 3.89 mg/dL (0.52-1.25)
[2018-10-07 20:57] LABS: POTASSIUM 2.6 mmol/L (3.4-5.0)
[2018-10-07 21:12] LABS: TROPONIN-I 0.087 ng/mL (0.000-0.035)
[2018-10-08] VITALS (899 sets, daily range): BP systolic 109–126; BP diastolic 61–86; PULSE 77–98; TEMP 98.1–98.8; O2SAT 74–100
--- NOTE | 2018-10-08 | NUR ---
PT ORIENTED TO PERSON, , AND PRESIDENT OF US ONLY. PT UNAWARE OF DATE GIVING WRONG MONTH AND YEAR. PT UNABLE TO STATE PRESENT LOCATION; STATE OR TOWN.
--- NOTE | 2018-10-08 04:00 | NUR ---
PT A&O X4 AND FOUND TO HAVE REMOVED MITTS. PT STATES HER THROAT IS DRY. PT SAT UP AND OFFERED WATER, WHICH WAS TOLERATED WELL. PT CONVERSED WITHOUT DIFFICULTY OR CONFUSION.
[2018-10-08 04:34] LABS: INR 1.7 (0.8-3.0); MEAN CELL VOLUME 97 fl (80.0-100.0); MEAN CORPUSCULAR HGB CONC 35 g/dl (33.0-37.0); PROTHROMBIN TIME 19.5 SECONDS (9.7-12.8); RED BLOOD COUNT 1.99 M/mm3 (4.10-5.30); REDCELL DISTRIBUTION WIDTH-CV 15.3 % (11.5-14.5)
[2018-10-08 04:39] LABS: ALBUMIN 4.1 gm/dL (3.5-5.0); BILIRUBIN,TOTAL 9.4 mg/dL (0.0-1.0); CALCIUM 9.2 mg/dL (8.4-10.2); CREATININE, serum 2.96 mg/dL (0.52-1.25); MAGNESIUM 2.5 mg/dL (1.6-2.3); TOTAL PROTEIN 6.9 gm/dL (6.4-8.2)
[2018-10-08 04:50] LABS: POTASSIUM 2.6 mmol/L (3.4-5.0)
[2018-10-08 04:52] LABS: HEMATOCRIT 19.3 % (37.0-47.0); HEMOGLOBIN 6.7 g/dl (12.5-16.0); MEAN CORPUSCULAR HEMOGLOBIN 34 pg (27.0-31.0); PLATELET COUNT 48 K/mm3 (130-400)
[2018-10-08 05:05] LABS: ANISOCYTOSIS 1+; BAND 14 % (0-10); LYMPHOCYTE 9 % (20.0-51.0); METAMYELOCYTE 14 % (0-0); NEUTROPHILS 55 % (42.0-75.2); PLATELET ESTIMATE DECREASED (NORMAL)
[2018-10-08 05:06] LABS: OVALOCYTES 1+; SCHISTOCYTES 1+; TEAR DROP CELLS 1+
[2018-10-08 05:40] LABS: MEAN CELL VOLUME 97 fl (80.0-100.0); MEAN CORPUSCULAR HGB CONC 35 g/dl (33.0-37.0); MEAN PLATELET VOLUME 9.2 fl (7.4-10.4); RED BLOOD COUNT 1.99 M/mm3 (4.10-5.30); REDCELL DISTRIBUTION WIDTH-CV 15.4 % (11.5-14.5)
[2018-10-08 06:16] LABS: HEMATOCRIT 19.2 % (37.0-47.0); HEMOGLOBIN 6.7 g/dl (12.5-16.0); MEAN CORPUSCULAR HEMOGLOBIN 34 pg (27.0-31.0); PLATELET COUNT 44 K/mm3 (130-400)
[2018-10-08 06:29] LABS: BAND 11 % (0-10); LYMPHOCYTE 6 % (20.0-51.0); METAMYELOCYTE 15 % (0-0); NEUTROPHILS 57 % (42.0-75.2); PLATELET ESTIMATE DECREASED (NORMAL)
[2018-10-08 06:30] LABS: OVALOCYTES 1+; SCHISTOCYTES 1+
[2018-10-08 10:21] LABS: PATHOLOGY DIFF REVIEW OK
--- NOTE | 2018-10-08 12:56 | NUR ---
CRITICAL TROPONIN LEVELED REPORTED TO LIBORIO FUCHS. TROPONIN TRENDING DOWN. PT NOT C/O ANY CHEST PAIN AT THIS TIME. NO NEW ORDERS.
--- NOTE | 2018-10-08 13:08 | NUR ---
report given to DAPHNEY manning.
[2018-10-08 14:37] LABS: HEMATOCRIT 21.6 % (37.0-47.0); HEMOGLOBIN 7.6 g/dl (12.5-16.0)
[2018-10-08 14:40] LABS: CALCIUM 9.7 mg/dL (8.4-10.2); CREATININE, serum 2.2 mg/dL (0.52-1.25); POTASSIUM 3.3 mmol/L (3.4-5.0)
--- NOTE | 2018-10-08 18:40 | NUR ---
PATIENT HAS HAD A TOTAL OF 4 BRIGHT BLOODY LIQUID STOOLS TODAY.
--- NOTE | 2018-10-08 19:30 | NUR ---
Bedside report received from DAPHNEY Griffiths.
--- NOTE | 2018-10-08 19:33 | NUR ---
REPORT GIVEN TO DAPHNEY CUETO.
--- NOTE | 2018-10-08 20:00 | NUR ---
Assessment complete. Patient resting in bed at this time. Patient falls asleep intermittently but is easily awakened by her name. She is oriented x3 at this time and alert. Assessment reveals a small amount of edema in her ankles. Patient has no complaints of pain. No further needs. Will continue to monitor. Call light within reach
[2018-10-08 20:12] LABS: CALCIUM 9.8 mg/dL (8.4-10.2); CREATININE, serum 1.81 mg/dL (0.52-1.25); POTASSIUM 3.5 mmol/L (3.4-5.0)
[2018-10-08 20:32] LABS: HEMATOCRIT 21.7 % (37.0-47.0); HEMOGLOBIN 7.7 g/dl (12.5-16.0)
[2018-10-09] VITALS (875 sets, daily range): BP systolic 121–130; BP diastolic 72–92; PULSE 80–86; TEMP 98.4–99; O2SAT 66–100
--- NOTE | 2018-10-09 | NUR ---
Assessment complete. Patient is awake watching TV at this time. No complaints of pain or discomfort. Vitals remain stable. No changes from previous assessment. Will continue to monitor. Call light within reach.
[2018-10-09 02:23] LABS: HEMATOCRIT 22.9 % (37.0-47.0); HEMOGLOBIN 7.8 g/dl (12.5-16.0)
[2018-10-09 02:33] LABS: CALCIUM 10.1 mg/dL (8.4-10.2); CREATININE, serum 1.5 mg/dL (0.52-1.25)
--- NOTE | 2018-10-09 04:00 | NUR ---
Patient resting in bed watching tv. Assessment complete. No complaints of pain. Vitals remain stable. No further needs at this time. Will continue to monitor. Call light within reach.
[2018-10-09 05:04] LABS: BASO % 0.4 % (0.0-2.0); EOS # 0.1 (0.0-0.7); EOS % 1.2 % (0-4.0); GRAN # 2.8 (1.4-6.5); GRAN % 54.9 % (42.2-75.2); LYMPH # 0.4 (1.2-3.4); MEAN CELL VOLUME 95 fl (80.0-100.0); MEAN CORPUSCULAR HGB CONC 35 g/dl (33.0-37.0); MEAN PLATELET VOLUME 10.1 fl (7.4-10.4); MONO # 1.6 (0.1-0.6); MONO % 31.6 % (1.7-9.3); RED BLOOD COUNT 2.34 M/mm3 (4.10-5.30); REDCELL DISTRIBUTION WIDTH-CV 16.7 % (11.5-14.5)
[2018-10-09 05:07] LABS: HEMATOCRIT 22.3 % (37.0-47.0); HEMOGLOBIN 7.9 g/dl (12.5-16.0); MEAN CORPUSCULAR HEMOGLOBIN 34 pg (27.0-31.0)
[2018-10-09 05:09] LABS: INR 1.7 (0.8-3.0); PLATELET COUNT 44 K/mm3 (130-400); PROTHROMBIN TIME 19.4 SECONDS (9.7-12.8)
[2018-10-09 05:13] LABS: ALBUMIN 4.1 gm/dL (3.5-5.0); CALCIUM 9.9 mg/dL (8.4-10.2); CREATININE, serum 1.4 mg/dL (0.52-1.25)
[2018-10-09 05:17] LABS: POTASSIUM 2.9 mmol/L (3.4-5.0)
--- NOTE | 2018-10-09 07:10 | NUR ---
Received report from DAPHNEY Jones. Patient was resting in bed. Medications varified.
--- NOTE | 2018-10-09 07:20 | NUR ---
Bedside report given to DAPHNEY Lindquist and DAPHNEY Schofield
[2018-10-09 10:01] LABS: CALCIUM 9.9 mg/dL (8.4-10.2); CREATININE, serum 1.23 mg/dL (0.52-1.25); POTASSIUM 3.4 mmol/L (3.4-5.0)
--- NOTE | 2018-10-09 19:07 | NUR ---
Bedside report received from DAPHNEY Schofield and DAPHNEY Lindquist
--- NOTE | 2018-10-09 19:16 | NUR ---
Gave bedside report to DAPHNEY Jones.
--- NOTE | 2018-10-09 20:00 | NUR ---
Assessment complete at this time. Patient awake and resting in bed. She attempted to eat part of her dinner and ate about 30% and drank all of her ensure. Patient states that she was having some nausea earlier, but isnt anymore. No complaints of pain, just some generalized soreness from being in bed. Vitals are stable. Patient has no other needs at this time. Will continue to monitor. Call light within reach.
[2018-10-10] VITALS (1009 sets, daily range): BP systolic 109–126; BP diastolic 65–74; PULSE 74–97; TEMP 98.2–98.9; O2SAT 85–100
--- NOTE | 2018-10-10 | NUR ---
Assessment complete. No changes from previous assessment. Patient is asleep in bed but easily awakens to name. Vitals remain stable. Patient has no other needs at this time. Will continue to monitor. Call light within reach.
--- NOTE | 2018-10-10 04:00 | NUR ---
Patient sleeping at this time. No complaints of pain. Vitals remain stable. Assessment complete. She has no further needs at this time. Will continue to monitor. Call light within reach.
--- NOTE | 2018-10-10 07:05 | NUR ---
Bedside report given to DAPHNEY Schofield and DAPHNEY Lindquist
--- NOTE | 2018-10-10 07:20 | NUR ---
Got report from DAPHNEY Jones. Patient was resting in bed. Medications varified.
[2018-10-10 07:24] LABS: MEAN CELL VOLUME 98 fl (80.0-100.0); MEAN CORPUSCULAR HGB CONC 34 g/dl (33.0-37.0); MEAN PLATELET VOLUME 9.7 fl (7.4-10.4); RED BLOOD COUNT 2.45 M/mm3 (4.10-5.30); REDCELL DISTRIBUTION WIDTH-CV 16.6 % (11.5-14.5)
[2018-10-10 07:32] LABS: HEMATOCRIT 24.1 % (37.0-47.0); HEMOGLOBIN 8.3 g/dl (12.5-16.0); MEAN CORPUSCULAR HEMOGLOBIN 34 pg (27.0-31.0)
[2018-10-10 07:33] LABS: PLATELET COUNT 47 K/mm3 (130-400)
--- NOTE | 2018-10-10 07:39 | NUR ---
Critical Lab was called. Lab is improving at this time as expected. No need to notify physician at this time.
[2018-10-10 08:05] LABS: ALBUMIN 3.6 gm/dL (3.5-5.0); CALCIUM 9.6 mg/dL (8.4-10.2); CREATININE, serum 0.87 mg/dL (0.52-1.25); MAGNESIUM 1.4 mg/dL (1.6-2.3); POTASSIUM 3.4 mmol/L (3.4-5.0); TOTAL PROTEIN 6.4 gm/dL (6.4-8.2)
[2018-10-10 08:26] LABS: BILIRUBIN UNCONJUGATED 4.8 mg/dL (0.0-1.1); BILIRUBIN,DIRECT 7.5 mg/dL (0.0-0.4); BILIRUBIN,TOTAL 12.3 mg/dL (0.0-1.0)
--- NOTE | 2018-10-10 11:12 | NUR ---
PATIENT IN BED WATCHING TV. PATIENTS PARENTS ARE IN THE ROOM. WILL CONTINUE TO MONITOR PATIENT.
[2018-10-10 11:41] LABS: ANISOCYTOSIS 1+; BAND 3 % (0-10); EOSINOPHIL 1 % (0-4); HYPOCHROMIA 1+; LYMPHOCYTE 30 % (20.0-51.0); NEUTROPHILS 60 % (42.0-75.2)
--- NOTE | 2018-10-10 18:05 | NUR ---
PATIENT IS SITTING IN BED WATCHING TV. PATIENT DENIES PAIN AT THIS TIME.
--- NOTE | 2018-10-10 19:15 | NUR ---
GAVE REPORT TO DAPHNEY MALIK.
--- NOTE | 2018-10-10 21:40 | NUR ---
PT ALERT AND ORIENTED. PT OFFERED AND ACCEPTED BATHING WIPES FOR PERSONAL AND HAND HYGIENE.
[2018-10-11] VITALS (456 sets, daily range): BP systolic 101–121; BP diastolic 47–71; PULSE 74–96; TEMP 98.2–98.7; O2SAT 85–100
[2018-10-11 05:32] LABS: MEAN CELL VOLUME 99 fl (80.0-100.0); MEAN CORPUSCULAR HGB CONC 34 g/dl (33.0-37.0); MEAN PLATELET VOLUME 10.1 fl (7.4-10.4); PLATELET COUNT 52 K/mm3 (130-400); RED BLOOD COUNT 2.57 M/mm3 (4.10-5.30); REDCELL DISTRIBUTION WIDTH-CV 16.6 % (11.5-14.5)
[2018-10-11 05:36] LABS: HEMATOCRIT 25.5 % (37.0-47.0); HEMOGLOBIN 8.7 g/dl (12.5-16.0); MEAN CORPUSCULAR HEMOGLOBIN 34 pg (27.0-31.0)
[2018-10-11 05:46] LABS: ALBUMIN 3.2 gm/dL (3.5-5.0); BILIRUBIN,TOTAL 8.1 mg/dL (0.0-1.0); CALCIUM 9.2 mg/dL (8.4-10.2); CREATININE, serum 0.67 mg/dL (0.52-1.25); MAGNESIUM 1.2 mg/dL (1.6-2.3); PHOSPHOROUS 2.6 mg/dL (2.5-4.5); POTASSIUM 3.8 mmol/L (3.4-5.0)
--- NOTE | 2018-10-11 07:22 | NUR ---
RECEIVED REPORT FROM DAPHNEY MALIK. PATIENT WAS ASLEEP IN BED. MEDICATIONS AND LABS VARIFIED.
[2018-10-11 08:59] LABS: BAND 3 % (0-10); EOSINOPHIL 2 % (0-4); LYMPHOCYTE 2 % (20.0-51.0); METAMYELOCYTE 2 % (0-0); MYELOCYTE 1 % (0-0); NEUTROPHILS 84 % (42.0-75.2)
[2018-10-11 09:06] LABS: ANISOCYTOSIS 2+
[2018-10-11 09:09] LABS: PLATELET ESTIMATE DECREASED (NORMAL)
--- NOTE | 2018-10-11 12:58 | NUR ---
CALLED AND GAVE REPORT TO DAPHNEY HUTCHINSON.
--- NOTE | 2018-10-11 13:32 | NUR ---
GATHERED PATIENTS BELONGINGS AND TRANSFERED PATIENT TO MEDIAL FLOOR VIA WHEELCHAIR. TRANSFERED CARE TO DAPHNEY HUTCHINSON,
--- NOTE | 2018-10-11 13:45 | NUR ---
PT recieved from ICU. Pt sitting in chair alert and oriented, breathing even and unlabored. Oriented pt to room, set chair alarm. Pt denies any needs at this time. Call light in reach.
--- NOTE | 2018-10-11 18:22 | NUR ---
Pt lying in bed. eyes closed, wakens to verbal stimuli. Pt is alert and oriented, breathing even and unlabored. Pt has arriola catheter in place, urine is a light orange to dark yellow color. Pt denies pain and denies any needs at this time. Call light in reach.
--- NOTE | 2018-10-11 18:32 | NUR ---
This RN reviewed Brynn Morrison's documentation and agrees with findings. Pt has had uneventful afternoon, sat up in chair by window for several hours, she is alert and partially oriented with slight conversation delay, cooperative. PICC site free of redness, slight swelling present will monitor. Bowling is gravity draining clear orangey-yellow urine. Pt denies pain, SOB. Resting in bed with alarm on, call light in reach
--- NOTE | 2018-10-11 19:20 | NUR ---
Report given to Alexandra SHELLEY, pt resting, ate little for dinner, denies needs, call light in reach
--- NOTE | 2018-10-11 21:28 | NUR ---
PT RESTING IN BED A+oX4 reports no pain. no SOA. pt is jaundice. reports have a BM during the day. shift assessment complete. no needs at this time. call light in reach
--- NOTE | 2018-10-11 23:27 | NUR ---
pt resting in bed. arriola draining freely, no kinks. PICC flushes well, blood return noted. no needs at this time. call llight in reach
[2018-10-12] VITALS (11 sets, daily range): BP systolic 95–105; BP diastolic 37–56; PULSE 92–103; TEMP 98.3–99.3
--- NOTE | 2018-10-12 01:58 | NUR ---
pt reports not being able to sleep. awake reading paper. no pain. no needs. arriola draining, no kinks. call light in reach
--- NOTE | 2018-10-12 05:33 | NUR ---
pt had an uneventful night. score a 0 on detox scale. arriola draining freely, no kinks. pt skin and eyes jaundice. reports no pain. pt reports having a hard time falling alseep. no needs at this time. call light inreach. bed alarm on
[2018-10-12 07:02] LABS: HEMATOCRIT 24.3 % (37.0-47.0); HEMOGLOBIN 8.1 g/dl (12.5-16.0); MEAN CELL VOLUME 100 fl (80.0-100.0); MEAN CORPUSCULAR HEMOGLOBIN 33 pg (27.0-31.0); MEAN CORPUSCULAR HGB CONC 33 g/dl (33.0-37.0); MEAN PLATELET VOLUME 10.8 fl (7.4-10.4); PLATELET COUNT 54 K/mm3 (130-400); RED BLOOD COUNT 2.43 M/mm3 (4.10-5.30); REDCELL DISTRIBUTION WIDTH-CV 16.4 % (11.5-14.5)
[2018-10-12 07:15] LABS: BILIRUBIN,TOTAL 5.5 mg/dL (0.0-1.0); CREATININE, serum 0.64 mg/dL (0.52-1.25); MAGNESIUM 1.5 mg/dL (1.6-2.3); POTASSIUM 3.5 mmol/L (3.4-5.0); TOTAL PROTEIN 5.6 gm/dL (6.4-8.2)
--- NOTE | 2018-10-12 07:16 | NUR ---
report given to DAPHNEY Martinez
[2018-10-12 07:17] LABS: INR 1.7 (0.8-3.0)
--- NOTE | 2018-10-12 08:50 | NUR ---
PICC intact right upper arm with sterile dressing change done with insertion site cleansed with chloraprep x 1, chlorhexidine impregnated disk applied, skin prep, stat lock, and tegaderm applied. no signs or symptoms of IV complications noted. no concerns voiced. re-wrapped with negrita to protect catheter.
[2018-10-12 11:15] LABS: BAND 1 % (0-10); HYPOCHROMIA 1+; LYMPHOCYTE 21 % (20.0-51.0); METAMYELOCYTE 3 % (0-0); NEUTROPHILS 69 % (42.0-75.2)
[2018-10-12 11:16] LABS: ANISOCYTOSIS 1+
--- NOTE | 2018-10-12 22:10 | NUR ---
PT RESTING IN BED A+OX4. reports no pain. skins and eye jaundice. pt reports urninating after arriola removal, no issues. shift assessment complete. no needs at this time. call light inreach. bed alarm on
--- NOTE | 2018-10-13 01:57 | NUR ---
pt has been sleeping. reports no pain. no needs at this time. call light in reach
[2018-10-13 01:58] VITALS: BP 103/51; PULSE 95; TEMP 98.6
[2018-10-13 03:35] VITALS: BP 103/50; PULSE 92; TEMP 98.8
--- NOTE | 2018-10-13 04:44 | NUR ---
pt resting in bed throughout night. reports no pain. PICC flushes well, blood return noted. no needs at this time. call light in reach
[2018-10-13 06:11] LABS: MEAN CELL VOLUME 101 fl (80.0-100.0); MEAN CORPUSCULAR HGB CONC 34 g/dl (33.0-37.0); MEAN PLATELET VOLUME 11.1 fl (7.4-10.4); RED BLOOD COUNT 2.25 M/mm3 (4.10-5.30); REDCELL DISTRIBUTION WIDTH-CV 16.6 % (11.5-14.5)
[2018-10-13 06:15] LABS: HEMATOCRIT 22.7 % (37.0-47.0); HEMOGLOBIN 7.7 g/dl (12.5-16.0); MEAN CORPUSCULAR HEMOGLOBIN 34 pg (27.0-31.0)
[2018-10-13 06:17] VITALS: BP 105/56; PULSE 90; TEMP 99
[2018-10-13 06:17] LABS: PLATELET COUNT 49 K/mm3 (130-400)
[2018-10-13 06:51] LABS: CALCIUM 8.5 mg/dL (8.4-10.2); CREATININE, serum 0.59 mg/dL (0.52-1.25); MAGNESIUM 1.3 mg/dL (1.6-2.3); POTASSIUM 3.9 mmol/L (3.4-5.0)
--- NOTE | 2018-10-13 07:41 | NUR ---
REPORT GIVEN TO GLENN SHELLEY
--- NOTE | 2018-10-13 08:00 | NUR ---
PATIENT SITTING UP IN BED THIS MORNING. PATIENT IS A&O. TACHYCARDIA NOTED, OTHERWISE VSS. TELE IN PLACE. BOWEL SOUNDS ACTIVE ALL FOUR QUADRANTS. PATIENT TOLERATING FOOD & LIQUIDS WITHOUT ANY N/V. POSITIVE PEDAL PULSES EQUAL BILATERALLY. 2+ PITTING-EDEMA TO BLE NOTED. SCD'S TO BLE. PICC TO RUE. PATIENT DENIES PAIN. NO OTHER NEEDS AT THIS TIME.
[2018-10-13 08:24] VITALS: BP 104/52; PULSE 97; TEMP 98.3
--- NOTE | 2018-10-13 08:59 | NUR ---
SW met with patient about DPOA, living will, and alcohol treament options. Patient reported she would like to complete both DPOA and living will forms. Patient was also interested in a list of alcohol treatment options. SW provided both DPOA and living will forms. SW will return when patient is ready to sign. SW also provided alcohol trreatment options and offered to contact [facility] with patient. Patient would like to look over options but did not want to contact [facility] at this time.
[2018-10-13 09:19] LABS: BAND 5 % (0-10); LYMPHOCYTE 15 % (20.0-51.0); MYELOCYTE 7 % (0-0); NEUTROPHILS 61 % (42.0-75.2)
[2018-10-13 09:21] LABS: DOHLE BODIES PRESENT; HYPOCHROMIA 1+; TOXIC GRANULATION PRESENT
[2018-10-13 09:22] LABS: PLATELET ESTIMATE DECREASED (NORMAL)
[2018-10-13] MEDS ORDERED: PROTONIX 40MG T40 MG PO (10:28)
[2018-10-13] MEDS ORDERED: XIFAXAN550 MG PO (10:40)
[2018-10-13] MEDS ORDERED: LACTULOSE10 GM/153 PO (10:41)
[2018-10-13] MEDS ORDERED: MAG-OX 400400 MG/TAB PO (10:42)
[2018-10-13 10:44] VITALS: BP 108/44; PULSE 104; TEMP 98.1
--- NOTE | 2018-10-13 11:08 | NUR ---
KEEGAN attended clinical rounds. Patient will discharge home today with her parents. Patient is working with Matt from [employer] to start a medicaid application. reported to patient that one of her medications is very expensive because she does not have any insurance. KEEGAN and pharmacist did research and found a program through the tool radial drill press set up operator to provided assistance for medications. KEEGAN provided program application to patient and informed her that her PCP will need to sign it. KEEGAN and TYRONE also witnessed signature for DPOA and living will. Patient was provided original and 3 copies. KEEGAN also placed a copy of both forms on chart.
[2018-10-13 12:21] VITALS: BP 99/43; PULSE 101; TEMP 98.6
--- NOTE | 2018-10-13 15:05 | NUR ---
DISCHARGE INSTRUCTIONS REVIEWED WITH PATIENT AND FAMILY. ALL QUESTIONS ANSWERED. PATIENT PERSONAL BELONGINGS GATHERED.
--- NOTE | 2018-10-13 15:20 | NUR ---
PATIENT AMBULATED TO PERSONAL VEHICLE WITH MEDICAL STAFF. PATIENT DISCHARGED.
== END 2018-10-13 15:20 | disposition home or self-care (01) | DRG 871 ==
LOC: COL.ER 04:54 → ICU 07:22 → MEDICAL 10-11 13:25
PROVIDERS: Anesthesiology Critical Care Medicine; Emergency Medicine; Internal Medicine; Internal Medicine Gastroenterology; Physician Assistant; ADMIT Family Medicine
PROC: 0DJ08ZZ Inspection of Upper Intestinal Tract, Via Natural or Artificial Opening Endoscopic (ICD-10-PCS; 2018-10-06)
PROC: 02HV33Z Insertion of Infusion Device into Superior Vena Cava, Percutaneous Approach (ICD-10-PCS; principal; 2018-10-06 09:45)
DX: A41.81 Sepsis due to Enterococcus (principal); R65.21 Severe sepsis with septic shock; G93.41 Metabolic encephalopathy; N17.9 Acute kidney failure, unspecified; N39.0 Urinary tract infection, site not specified; K92.0 Hematemesis; K76.6 Portal hypertension; E87.1 Hypo-osmolality and hyponatremia; E83.42 Hypomagnesemia; K20.9 Esophagitis, unspecified; D64.9 Anemia, unspecified; K70.30 Alcoholic cirrhosis of liver without ascites; D69.6 Thrombocytopenia, unspecified; F10.20 Alcohol dependence, uncomplicated; E80.6 Other disorders of bilirubin metabolism; K31.89 Other diseases of stomach and duodenum; E87.6 Hypokalemia
CPT/HCPCS: 99233-AI; C1751; C9113; J0330; J0610; J0696; J1100; J1720; J1815; J2060; J2354; J2405; J2543; J2597; J2765; J3010; J3370; J3411; J3430; J3475; J3480; J7030; J7040; J7050; J7060; J7070; P9016; P9047

== ENCOUNTER 2019-01-17 05:54 | Inpatient (IN) | payer OTHER ==
[~2019-01-17] VITALS: Ht 167.6 cm; Wt 68.4 kg
[~2019-01-17 05:54] MED LIST changes: +ALAVERT10 M1 PO; +ALEVE 220MG220 MG PO; +CELEXA 20MG20 MG/TAB PO; +FERROUS GL325 MG/TAB; +FOLIC ACID0.8 MG PO; +MAG-OX 400400 MG/TAB PO; +MELATONIN5 M1 SL; +NATURE'S BLEND100 M2 PO; +PROTONIX 40MG T40 MG PO; +REQUIP 0.5MG0.5 MG PO; +XIFAXAN550 MG PO
[2019-01-17 06:48] LABS: BASO # 0.1 (0.0-0.2); BASO % 0.9 % (0.0-2.0); EOS # 0.3 (0.0-0.7); GRAN # 4.5 (1.4-6.5); GRAN % 68.6 % (42.2-75.2); HEMOGLOBIN 11.7 g/dl (12.5-16.0); LYMPH % 15.6 % (20.0-51.0); MEAN CELL VOLUME 96 fl (80.0-100.0); MEAN CORPUSCULAR HEMOGLOBIN 33 pg (27.0-31.0); MEAN CORPUSCULAR HGB CONC 34 g/dl (33.0-37.0); MEAN PLATELET VOLUME 10.7 fl (7.4-10.4); MONO # 0.7 (0.1-0.6); MONO % 10.3 % (1.7-9.3); PLATELET COUNT 85 K/mm3 (130-400); RED BLOOD COUNT 3.56 M/mm3 (4.10-5.30); REDCELL DISTRIBUTION WIDTH-CV 14.4 % (11.5-14.5)
[2019-01-17 06:50] LABS: HEMATOCRIT 34.1 % (37.0-47.0)
[2019-01-17 06:56] LABS: INR 1.3 (0.8-3.0); PROTHROMBIN TIME 15.4 SECONDS (9.7-12.8)
[2019-01-17 06:59] LABS: PARTIAL THROMBOPLASTIN TIME 39.9 SECONDS (26.0-37.0)
[2019-01-17 07:01] LABS: ALBUMIN 4.3 gm/dL (3.5-5.0); BILIRUBIN,TOTAL 3.5 mg/dL (0.0-1.0); CALCIUM 9.2 mg/dL (8.4-10.2); CREATININE, serum 0.59 (0.52-1.25); MAGNESIUM 1.5 mg/dL (1.6-2.3); POTASSIUM 3.1 mmol/L (3.4-5.0); TOTAL PROTEIN 8.1 gm/dL (6.4-8.2)
--- NOTE | 2019-01-17 10:20 | NUR ---
EZIO NOWAK DROPPED PATIENT OFF AND TOLD ELECTRIC DOLLY OPERATOR BUT NOT NURSE. AUTOCLAVE OPERATOR WENT TO ROOM TO DO ADMIT VITALS AND PATIENT HAD TAKEN ALL HER CLOTHES OFF AND WAS GETTING INTO THE SHOWER. PATIENT CURRENTLY SHOWERING WITHOUT IV COVERED AND DOESN'T SEEM INTERESTED IN FOLLOWING HOSPITAL RULES.
--- NOTE | 2019-01-17 10:45 | NUR ---
PATIENT DISCOVERED TO HAVE LEFT UNIT WITHOUT HER SHOES, WATCH OR CELLPHONE. PATEINT ETOH WAS 237 IN ER. ER NURSE REPORTS THAT PATIENT TRIED TO LEAVE AMA WHILE IN ER AND WAS STUMBLING AROUND AND COULDN'T FIND HER WAY OUT. SECURITY CALLED.
--- NOTE | 2019-01-17 11:05 | NUR ---
PATIENT DISCOVERED BACK IN HER ROOM. MICROFILM DUPLICATING UNIT SUPERVISOR AND NURSE WENT IN TO TALK TO PATIENT ABOUT LEAVING UNIT. PATIENT ADMITED SHE WENT OUTSIDE BUT WASN'T CLEAR WHY. PATIENT SAID SHE "WAS COLD" AND "NEEDED TO GO FOR A WALK FOR HER RESTLESS LEGS". PATIENT DIDN'T HAVE A GOOD REASON FOR GOING OUTSIDE WITHOUT HER SHOES. PATIENT IS ALSO CURRENTLY LAYING IN BED NAKED. HER STREET CLOTHES ARE AT THE BEDSIDE. PATIENT ALSO PUT BACK ON HER ON TELE UNIT. PATIENT WAS RECENTLY ADMITED IN OCTOBER FOR ISSUES RELATED TO ETOH. PATIENT WILL NOT DISCLOSE HOW MUCH ALCOHOL SHE DRANK LAST NIGHT. SHE DID REPORT HER LAST DRINK AT 2AM. PATIENT REPORTS NOT TAKING HER HOME MEDS FOR 2 WEEKS AND FEELING NAUSEATED THE LAST DAY OR TWO. PATIENT APPEARS A LITTLE JAUNDICE. AST 82. ETOH 237. K+ 3.1
[2019-01-17 11:33] VITALS: BP 121/60; PULSE 76; TEMP 98.2
[2019-01-17 14:23] VITALS: BP 115/64; PULSE 84; TEMP 98.5
[2019-01-17 15:54] VITALS: BP 116/60; PULSE 94; TEMP 98.9
[2019-01-17 15:57] LABS: HEMOGLOBIN 10.1 g/dl (12.5-16.0)
[2019-01-17 15:58] LABS: HEMATOCRIT 29.6 % (37.0-47.0)
--- NOTE | 2019-01-17 16:35 | NUR ---
NURSE CALLED AND REPORTED THAT PATIENT WAS SEEN SNEAKING OFF THE UNIT BY THE MEDICAL STAFF. WHEN SUPERVISOR PARTICLEBOARD TRIED TO STOP HER AND MORENO WHERE SHE WAS GOING THE PATIENT REPLIED "I'M OUT OF HERE". SECURITY CALLED AGAIN. PATIENT LEFT AMA WITH IV INPLACE. UNABLE TO LOCATE PATIENT.
--- NOTE | 2019-01-17 16:50 | NUR ---
SENIOR DATA MODELER ATTEMPTING TO CALL PATIENT AT HOME. PATIENT LIVES WITH HER PARENTS. PATIENT DIDN'T LIKELY WALK HOME.
--- NOTE | 2019-01-17 17:00 | NUR ---
PATIENT CALLED NURSE ON FLOOR TO TELL HER SHES HOME. NURSING ASKED PATIENT TO COME BACK TO REMOVE IV SITES. PATIENT REFUSED STATING SHE WILL JUST TAKE THEM OUT HERSELF. PATIENT HAS A HX OF SUBSTANCE ABUSE. DIRECTORY COMPILER GOT ON PHONE AND TOLD PATIENT SHE NEEDS TO RETURN TO HAVE IVS TAKEN OUT AND SIGN AMA FORM OR [facility] WOULD BE CALLED.
--- NOTE | 2019-01-17 17:15 | NUR ---
PATIENT AND MOTHER SHOWED UP TO HAVE IV'S TAKEN OUT. DC'D LEFT AC IV AND RIGHT FORARM IV. PATIENT SIGNED FORM AND LEFT.
== END 2019-01-17 17:15 | disposition left against medical advice (07) | DRG 378 ==
LOC: COL.ER 05:54 → SURG 07:27
PROVIDERS: Emergency Medicine; Physician Assistant; ADMIT Family Medicine
DX: K92.0 Hematemesis (principal); D62 Acute posthemorrhagic anemia; R00.0 Tachycardia, unspecified; K70.30 Alcoholic cirrhosis of liver without ascites; F10.10 Alcohol abuse, uncomplicated; D69.6 Thrombocytopenia, unspecified; F32.9 Major depressive disorder, single episode, unspecified; G25.81 Restless legs syndrome; E87.6 Hypokalemia; E83.42 Hypomagnesemia; R01.1 Cardiac murmur, unspecified
CPT/HCPCS: 99222-AI; C9113; J2405; J3475; J7030; J7120

== ENCOUNTER 2019-02-16 01:19 | Inpatient (IN) | payer OTHER ==
[~2019-02-16] VITALS: Ht 167.6 cm; Wt 72.4 kg
[2019-02-16 02:00] LABS: HEMATOCRIT 37.3 % (37.0-47.0); HEMOGLOBIN 13.5 g/dl (12.5-16.0); MEAN CELL VOLUME 93 fl (80.0-100.0); MEAN CORPUSCULAR HEMOGLOBIN 34 pg (27.0-31.0); MEAN CORPUSCULAR HGB CONC 36 g/dl (33.0-37.0); MEAN PLATELET VOLUME 10.6 fl (7.4-10.4); PLATELET COUNT 202 K/mm3 (130-400); RED BLOOD COUNT 4.03 M/mm3 (4.10-5.30); REDCELL DISTRIBUTION WIDTH-CV 13.5 % (11.5-14.5)
[2019-02-16 02:05] LABS: INR 1.4 (0.8-3.0); PROTHROMBIN TIME 16.9 SECONDS (9.7-12.8)
[2019-02-16 02:08] LABS: PARTIAL THROMBOPLASTIN TIME 36.8 SECONDS (26.0-37.0)
[2019-02-16 02:11] LABS: BILIRUBIN,TOTAL 8.9 mg/dL (0.0-1.0); CALCIUM 7.3 mg/dL (8.4-10.2); POTASSIUM 3.6 mmol/L (3.4-5.0); TOTAL PROTEIN 8.9 gm/dL (6.4-8.2)
[2019-02-16 02:18] LABS: CREATININE, serum 5.4 (0.52-1.25)
[2019-02-16 02:28] LABS: BAND 7 % (0-10); LYMPHOCYTE 10 % (20.0-51.0); NEUTROPHILS 76 % (42.0-75.2); PLATELET ESTIMATE NORMAL (NORMAL)
[2019-02-16 04:18] LABS: HEMOGLOBIN 11.8 g/dl (12.5-16.0)
[2019-02-16 04:24] LABS: HEMATOCRIT 31.5 % (37.0-47.0); MAGNESIUM 1.1 mg/dL (1.6-2.3); PHOSPHOROUS 6.5 mg/dL (2.5-4.5)
[2019-02-16 04:24] LABS: HYALINE CAST >12 /lpf; MUCOUS Present /lpf; PH 5 (5-8); SQUAMOUS EPITHELIAL 0-2 /hpf; URINE APPEARANCE Cloudy; URINE BACTERIA Rare /hpf; URINE BILIRUBIN Negative (NEGATIVE); URINE BLOOD 3+ (NEGATIVE); URINE COLOR Amber; URINE GLUCOSE Negative (NEGATIVE); URINE KETONE Negative (NEGATIVE); URINE LEUKOCYTE ESTERASE Negative (NEGATIVE); URINE NITRATE Negative (NEGATIVE); URINE PROTEIN(semi-quant) 3+ (NEGATIVE)
[2019-02-16 04:25] LABS: COLLECTION METHOD CATHETER
--- NOTE | 2019-02-16 05:53 | NUR ---
Anesthesia notified that patient is scheduled to have an EGD this morning at 0700.
--- NOTE | 2019-02-16 06:38 | NUR ---
Telephone report received from DAPHNEY Iniguez.
--- NOTE | 2019-02-16 08:00 | NUR ---
PT ARRIVED TO UNIT TACHYCARDIC 160'S AND HYPOTENTISIVE 97 SYSTOLIC WITHOUT DRIPS (BANANA BAG, OCTREOTIDE, NS) RUNNING. PT IS DROWSY BUT ALERT AND ORIENTED X4. DR BELTRAN CALLED AT 0802 FOR FURTHER ORDERS.
[2019-02-16 08:24] VITALS: BP 97/55; PULSE 148; TEMP 98.6
[2019-02-16 10:18] LABS: ARTERIAL BLD GAS O2 SATURATION 91.4 % (92-100); ARTERIAL BLD GAS TCO2 CT 31.8; ARTERIAL BLOOD GAS BASE EXCESS 6.7 (-2-2); ARTERIAL BLOOD GAS HCO3 30.5 meq/L (22-26); ARTERIAL BLOOD GAS PCO2 40.8 mmHg (35-45); ARTERIAL BLOOD GAS PO2 69.8 mmHg (80-100); ARTERIAL BLOOD GAS pH 7.49 (7.35-7.45)
[2019-02-16 12:00] VITALS: BP 104/58; PULSE 96; TEMP 98.4
[2019-02-16 12:59] LABS: HEMATOCRIT 27.5 % (37.0-47.0); HEMOGLOBIN 9.7 g/dl (12.5-16.0)
--- NOTE | 2019-02-16 13:34 | NUR ---
Met with pt and her father at bedside. Pt offers little input into the conversation but did nod in agreement several times. Father reports that they have decided not to intubate. They would like supportive care to see if kidneys/liver/lungs will show some improvement. He does realize that Geetha's prognosis is quite poor and that while we are continuing supportive care right now, that hospice/comfort care will be the next step if things do not improve. Geetha's mother will be back later this afternoon and I will try to touch base again then.
--- NOTE | 2019-02-16 13:56 | NUR ---
SW attended clinical rounding and met with patient to discuss discharge planning. Patient lives with her parents Deanna and magnolia in [place]. Patients PCP is Dr Oneal and she obtains her medications from [facility]. Patient has a DPOA with her mother and father listed, it is in EMR. Patient reports she drinks a liter a day and told the ER that her last drink was thursday. A pallative care consult was ordered for patient. Negar reports at this time they want no intubation and supportive care. Matt with [employer] met with patient and parents to complete a new medicaid application. Patient was denied last time for non compliance. KEEGAN will continue to follow.
[2019-02-16 14:24] LABS: CREATININE, serum 2.85 (0.52-1.25)
[2019-02-16 14:48] LABS: POTASSIUM 2.5 mmol/L (3.4-5.0)
[2019-02-16 14:49] LABS: CALCIUM 5.7 mg/dL (8.4-10.2)
--- NOTE | 2019-02-16 15:12 | NUR ---
Initial visit; Patient resting, Parents receptive to visit and spiritual care. Agency Operator left her card with assurance that she is available throughout the days and On-Call Chaplains are available at night. They thanked institutional research director.
--- NOTE | 2019-02-16 15:33 | NUR ---
Met with patieint's parents at bedside although pt is sleeping through most of the meeting. While they would like to support her in fighting through her situation, they do realize that her condition will still be there. She is not wanting to pursue alcohol treatment. If things would decline, they would like to look into hospice services and will talk among themselves to see what location might be best for the situation at that time. support provided and currently we will continue with supportive care.
[2019-02-16 16:00] VITALS: BP 106/56; PULSE 91; TEMP 98.2
--- NOTE | 2019-02-16 17:18 | NUR ---
PT HR UNDER CONTROL. PT DENIES PAIN, BUT DOES STATE SHE HAS A SLIGHT STOMACHE ACHE. PT IS AND STATES SHE IS COMFORTABLE.
[2019-02-16 18:09] LABS: HEMATOCRIT 25.2 % (37.0-47.0); HEMOGLOBIN 8.8 g/dl (12.5-16.0)
--- NOTE | 2019-02-16 19:30 | NUR ---
Bedside report received from DAPHNEY Iniguez. All lines and medications reviewed. Transfer of care at this time.
[2019-02-16 20:00] VITALS: BP 108/63; PULSE 89; TEMP 99.1
--- NOTE | 2019-02-16 20:00 | NUR ---
Patient is alert and oriented and answers questions appropriately. She is a little drowsy, but does sit up to drink some of the fluids on her tray. Requests some ice water. Provided. Assessment complete. Patient's lungs are clear with diminished bases. HR and rhythm regular with normal S1 and S2 heard. Bowel sounds are hypoactive, but audible. Patient has no current complaints of pain but does state that she has some epigastric cramping when she eats anything. Patient has no further needs at this time. Will continue to monitor. Call light within reach.
[2019-02-16 21:07] LABS: CREATININE, serum 2.13 (0.52-1.25); FRACTIONAL EXCRETION OF NA+ 0.5 %
[2019-02-16 21:09] LABS: URINE PROTEIN:CREAT RATIO 0.45 (0.00-0.14)
[2019-02-16 22:00] VITALS: TEMP 98.9
--- NOTE | 2019-02-16 22:15 | NUR ---
Per Dr. Hinds, patient's mother, Deanna, called and notified that patient's kidneys are doing better. Her creatinine has dropped from 5 to 2. We are going to decrease her fluids now. Dr. Brand has also agreed to this plan. She has had great urine output tonight and Dr Hinds is happy with her progress. Deanna thanks this nurse for the update and has no further questions.
--- NOTE | 2019-02-17 | NUR ---
Patient sleeping upon extrance into the room. Awakens to name. Patient is alert and oriented, answers questions appropriately. Assessment complete. No changes from previous exam except bowel sounds are more active now. Vitals obtained and remain stable. Patient has no complaints of pain. No further needs at this time. Will continue to monitor. Call light within reach.
[2019-02-17 04:00] VITALS: BP 94/60; PULSE 76; TEMP 98.8
--- NOTE | 2019-02-17 04:00 | NUR ---
Patient asleep, but awakens to name. Assessment performed with no changes from previous exam. Vitals obtained and remain stable. Patient has no complaints of pain. She states, "this is the best rest I've ever had on a hospital stay". Patient has no further needs. Will continue to monitor. Call light within reach.
[2019-02-17 05:46] LABS: BASO % 0.1 % (0.0-2.0); EOS # 0.2 (0.0-0.7); GRAN # 6.5 (1.4-6.5); GRAN % 75.2 % (42.2-75.2); LYMPH % 12.1 % (20.0-51.0); MEAN CORPUSCULAR HGB CONC 34 g/dl (33.0-37.0); MEAN PLATELET VOLUME 9.6 fl (7.4-10.4); MONO # 0.9 (0.1-0.6); MONO % 10.3 % (1.7-9.3); RED BLOOD COUNT 2.56 M/mm3 (4.10-5.30); REDCELL DISTRIBUTION WIDTH-CV 13.9 % (11.5-14.5)
[2019-02-17 05:47] LABS: HEMOGLOBIN 8.6 g/dl (12.5-16.0); MEAN CELL VOLUME 98 fl (80.0-100.0); MEAN CORPUSCULAR HEMOGLOBIN 34 pg (27.0-31.0); PLATELET COUNT 78 K/mm3 (130-400)
[2019-02-17 06:01] LABS: CALCIUM 6.4 mg/dL (8.4-10.2); CREATININE, serum 1.36 (0.52-1.25); INR 1.5 (0.8-3.0); MAGNESIUM 2.6 mg/dL (1.6-2.3); POTASSIUM 5.4 mmol/L (3.4-5.0); PROTHROMBIN TIME 17.8 SECONDS (9.7-12.8); TOTAL PROTEIN 5.7 gm/dL (6.4-8.2)
[2019-02-17 06:26] LABS: BILIRUBIN UNCONJUGATED 2.2 mg/dL (0.0-1.1)
[2019-02-17 07:11] LABS: CREATININE, serum 1.36 (0.52-1.25); FRACTIONAL EXCRETION OF NA+ 0.5 %
[2019-02-17 07:12] LABS: BILIRUBIN,DIRECT 2.8 mg/dL (0.0-0.4)
--- NOTE | 2019-02-17 07:30 | NUR ---
Bedside report received from DAPHNEY Jones. Care taken over at this time.
--- NOTE | 2019-02-17 07:57 | NUR ---
Bedside report given to DAPHNEY Sierra. All lines and medications reviewed. Transfer of care at this time.
[2019-02-17 08:00] VITALS: BP 100/67; PULSE 89; TEMP 98.6
--- NOTE | 2019-02-17 10:00 | NUR ---
DR. SORENSEN IN TO SEE PATIENT. SHE IS DROWSY BUT RESPONDS APPROPRIATELY WHEN HE EVALUATES HER AND ASKS HER QUESTIONS. PLAN OF CARE IS DISCUSSED AND HE STATES SHE CAN MOVE UP TO THE MEDICAL FLOOR.
[2019-02-17 12:00] VITALS: BP 116/70; PULSE 91; TEMP 99.3
--- NOTE | 2019-02-17 13:14 | NUR ---
SW attended clinical rounding. Patient is doing well today and will transfer upstairs when a bed is open.
--- NOTE | 2019-02-17 15:50 | NUR ---
manager heart ordered PICC catheter pulled back 3 cm. Explained the procedure to the patient. with sterile technique right upper arm PICC dressing change done with insertion site cleansed with ChloraPrep 1, catheter pulled to 2 cm marking on catheter, StatLock, skin prep, chlorhexidine impregnated disc, and Tegaderm applied. No signs or symptoms of IV complications noted. No concerns voiced. Arm wrapped with Cheikh to protect catheter.
[2019-02-17 16:00] VITALS: BP 112/69; PULSE 91
--- NOTE | 2019-02-17 16:45 | NUR ---
PATIENT REQUESTS PEDIALYTE. WILL TALK TO DIETARY AND SEE WHAT OPTIONS WE HAVE FOR HER.
--- NOTE | 2019-02-17 18:48 | NUR ---
REPORT GIVEN TO DAPHNEY LEBLANC ON SURGICAL FLOOR. PATIENT WILL TRANSFER TO ROOM 326
--- NOTE | 2019-02-17 20:05 | NUR ---
Pt. arrived to the floor via wheelchair. Pt. able to ambulated to the bed with standby assist. Pt. is A&XO3, assessment complete. INT to lt. forearm patent. PICC line to rt. upper arm, IV fluids infusing per orders. Pt. denies pain or other needs at this time.
--- NOTE | 2019-02-17 20:12 | NUR ---
PATIENT TRANSFERRED TO ROOM 326. DAPHNEY LEBLANC PRESENT WHEN I BROUGHT HER UP. CARE TRANSFERRED.
[2019-02-17 21:01] VITALS: BP 110/65; PULSE 98; TEMP 99.4
[2019-02-17 23:28] VITALS: BP 112/60; PULSE 103; TEMP 100.4
[2019-02-18 04:02] VITALS: BP 130/63; PULSE 94; TEMP 99.3
--- NOTE | 2019-02-18 06:53 | NUR ---
appears to be sleeping, bedside shift report received from DAPHNEY Michel
[2019-02-18 07:00] LABS: BASO % 0.2 % (0.0-2.0); EOS # 0.3 (0.0-0.7); EOS % 4.2 % (0-4.0); GRAN # 4.4 (1.4-6.5); GRAN % 68.8 % (42.2-75.2); LYMPH % 15.1 % (20.0-51.0); MEAN CELL VOLUME 99 fl (80.0-100.0); MEAN CORPUSCULAR HGB CONC 34 g/dl (33.0-37.0); MEAN PLATELET VOLUME 10.2 fl (7.4-10.4); MONO # 0.7 (0.1-0.6); MONO % 11.4 % (1.7-9.3); PLATELET COUNT 69 K/mm3 (130-400); RED BLOOD COUNT 2.58 M/mm3 (4.10-5.30); REDCELL DISTRIBUTION WIDTH-CV 13.5 % (11.5-14.5)
[2019-02-18 07:04] LABS: HEMATOCRIT 25.6 % (37.0-47.0); HEMOGLOBIN 8.7 g/dl (12.5-16.0); MEAN CORPUSCULAR HEMOGLOBIN 34 pg (27.0-31.0)
[2019-02-18 07:09] LABS: BILIRUBIN,TOTAL 5.3 mg/dL (0.0-1.0); CALCIUM 8.1 mg/dL (8.4-10.2); CREATININE, serum 0.72 (0.52-1.25); MAGNESIUM 1.8 mg/dL (1.6-2.3); PHOSPHOROUS 1.1 mg/dL (2.5-4.5); POTASSIUM 3.8 mmol/L (3.4-5.0); TOTAL PROTEIN 5.7 gm/dL (6.4-8.2)
--- NOTE | 2019-02-18 07:10 | NUR ---
awake and resting in bed, full assessment completed, see interventions for further info, denies needs or pain at this time
[2019-02-18 07:48] VITALS: BP 114/59; PULSE 95; TEMP 98.7
--- NOTE | 2019-02-18 08:54 | NUR ---
watching TV, offered breakfast but declines
--- NOTE | 2019-02-18 10:15 | NUR ---
resting in bed visiting with her mom, denies needs
[2019-02-18 10:19] VITALS: BP 120/61; PULSE 100
--- NOTE | 2019-02-18 10:46 | NUR ---
arriola catheter discontinued, tolerated well
--- NOTE | 2019-02-18 11:08 | NUR ---
Initial visit; Patient sitting up, smiling and appears to be doing better. Her Dad was present and appeared optimistic. Break And Load Operator wished them well and offered God's blessings to Geetha.
--- NOTE | 2019-02-18 12:00 | NUR ---
remains resting in bed and watching TV
--- NOTE | 2019-02-18 12:00 | NUR ---
assisted up to bathroom and boided qs, then ambulated in reese wiht stand by assist, back to room and into bed
[2019-02-18 12:10] VITALS: BP 131/69; PULSE 99; TEMP 99.4
--- NOTE | 2019-02-18 14:01 | NUR ---
KEEGAN met with the patient to review discharge plan and to discuss treatment for her alcohol use. The patient reports that she plans to return home with her parents. She states that she has been thinking about contacting the [employer] phone number for a screen for inpatient alcohol treatment. KEEGAN informed the patient that this is something that KEEGAN can assist her with while at the hospital. The patient reports that she has their information at home and would like to contact them herself. The patient had no other questions or concerns for KEEGAN at this time. No additional needs at this time.
--- NOTE | 2019-02-18 15:00 | NUR ---
asking about having something to eat and encouraged her that she could have a general diet, verbalizes understanding
[2019-02-18 15:56] VITALS: BP 111/67; PULSE 96; TEMP 99
--- NOTE | 2019-02-18 16:00 | NUR ---
sitting up in bed eating regular diet, denies needs
--- NOTE | 2019-02-18 16:52 | NUR ---
had general diet and tolerated well
[2019-02-18 18:18] LABS: CK total - for Isoenzymes 1969 U/L (26 - 192)
--- NOTE | 2019-02-18 18:30 | NUR ---
up to bathroom independently and moves with steady gait
--- NOTE | 2019-02-18 18:46 | NUR ---
bedside shift report given to DAPHNEY Hairston
[2019-02-18 19:46] VITALS: BP 112/63; PULSE 97; TEMP 99.6
--- NOTE | 2019-02-18 20:00 | NUR ---
Report received. 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 Assessment complete. VS stable. Denies pain. Has been up ambulating in the hallway. Tolerating well with a steady gate. Plan of care discussed for this shift. States she is ready to be discharged tomorrow. Denies questions or concerns. R upper arm PICC flushed without difficulty. Call light within reach-encouraged to call for questions or concerns. WIll monitor.
[2019-02-19 00:04] VITALS: BP 130/76; PULSE 106; TEMP 98.3
[2019-02-19 04:00] VITALS: BP 130/75; PULSE 82; TEMP 97.8
--- NOTE | 2019-02-19 08:00 | NUR ---
Patient is resting in bed at this time. Patient is alert and oriented, answers questions appropriately. Patient denies pain or needs at this time, call light within reach.
[2019-02-19 09:02] LABS: BASO % 0.5 % (0.0-2.0); EOS # 0.3 (0.0-0.7); EOS % 6.6 % (0-4.0); GRAN # 2.4 (1.4-6.5); GRAN % 55.3 % (42.2-75.2); LYMPH # 0.9 (1.2-3.4); LYMPH % 21.3 % (20.0-51.0); MEAN CELL VOLUME 99 fl (80.0-100.0); MEAN CORPUSCULAR HGB CONC 34 g/dl (33.0-37.0); MEAN PLATELET VOLUME 10.2 fl (7.4-10.4); MONO # 0.7 (0.1-0.6); MONO % 15.6 % (1.7-9.3); PLATELET COUNT 68 K/mm3 (130-400); RED BLOOD COUNT 2.73 M/mm3 (4.10-5.30); REDCELL DISTRIBUTION WIDTH-CV 13.8 % (11.5-14.5)
[2019-02-19 09:04] VITALS: BP 123/71; PULSE 87; TEMP 98.4
[2019-02-19 09:15] LABS: ALBUMIN 2.8 gm/dL (3.5-5.0); BILIRUBIN,TOTAL 3.5 mg/dL (0.0-1.0); CALCIUM 8.2 mg/dL (8.4-10.2); CREATININE, serum 0.49 (0.52-1.25); MAGNESIUM 1.1 mg/dL (1.6-2.3); PHOSPHOROUS 2.9 mg/dL (2.5-4.5); POTASSIUM 3.4 mmol/L (3.4-5.0); TOTAL PROTEIN 5.5 gm/dL (6.4-8.2)
[2019-02-19 09:29] LABS: HEMOGLOBIN 9.1 g/dl (12.5-16.0); MEAN CORPUSCULAR HEMOGLOBIN 33 pg (27.0-31.0)
[2019-02-19] MEDS ORDERED: AMOXICILLIN 8751 TAB PO (09:56)
--- NOTE | 2019-02-19 12:40 | NUR ---
Discharge teaching completed with patient and mother. PICC post removal care reviewed, patient verbalized understanding. Discharge instructions reviewed with patient, importance of antibiotic therapy stressed. Patient denies questions or needs. Patient escorted to visitor entrance where she got into her private vehicle.
== END 2019-02-19 12:40 | disposition home or self-care (01) | DRG 377 ==
LOC: COL.ER 01:19 → ICU 06:16 → SURG 02-17 20:19
PROVIDERS: Emergency Medicine; Internal Medicine Gastroenterology; Internal Medicine Nephrology; Internal Medicine Pulmonary Disease; Physician Assistant; ADMIT Family Medicine
PROC: 0DJ08ZZ Inspection of Upper Intestinal Tract, Via Natural or Artificial Opening Endoscopic (ICD-10-PCS; 2019-02-16)
PROC: 02HV33Z Insertion of Infusion Device into Superior Vena Cava, Percutaneous Approach (ICD-10-PCS; principal; 2019-02-16 07:00)
DX: K92.0 Hematemesis (principal); A41.9 Sepsis, unspecified organism; E87.2 Acidosis; N17.9 Acute kidney failure, unspecified; F10.239 Alcohol dependence with withdrawal, unspecified; I48.92 Unspecified atrial flutter; F10.231 Alcohol dependence with withdrawal delirium; I42.6 Alcoholic cardiomyopathy; K20.9 Esophagitis, unspecified; K70.30 Alcoholic cirrhosis of liver without ascites; Y90.2 Blood alcohol level of 40-59 mg/100 ml; Z66 Do not resuscitate; E83.42 Hypomagnesemia; E87.6 Hypokalemia; E83.39 Other disorders of phosphorus metabolism
CPT/HCPCS: 99223-AI; 99232-AI; 99233-AI; 99239; A4216; C1751; C1892; C9113; J0610; J0696; J2060; J2354; J2405; J2704; J3360; J3411; J3475; J3480; J7030; J7040; J7050

== ENCOUNTER → 2019-07-07 | Outpatient (CLI) | payer MEDICAID, OTHER ==
[~2019-07-07] MED LIST changes: +AMOXICILLIN 8751 TAB PO
== END ==
LOC: COL.RAD 07:10
DX: K70.30 Alcoholic cirrhosis of liver without ascites (principal); I86.8 Varicose veins of other specified sites; K80.20 Calculus of gallbladder without cholecystitis without obstruction
CPT/HCPCS: Q9967

== ENCOUNTER 2019-08-17 18:33 | Inpatient (IN) | payer MEDICAID ==
[~2019-08-17] VITALS: Ht 167.6 cm; Wt 66.0 kg
[2019-08-17] VITALS (70 sets, daily range): BP systolic 107; BP diastolic 63; PULSE 98; TEMP 99.2; O2SAT 95–100
[2019-08-17 19:42] LABS: BASO % 0.2 % (0.0-2.0); EOS % 0.4 % (0-4.0); GRAN # 4.4 (1.4-6.5); GRAN % 82.2 % (42.2-75.2); LYMPH # 0.4 (1.2-3.4); LYMPH % 7.1 % (20.0-51.0); MEAN CELL VOLUME 86 fl (80.0-100.0); MEAN CORPUSCULAR HEMOGLOBIN 29 pg (27.0-31.0); MEAN CORPUSCULAR HGB CONC 33 g/dl (33.0-37.0); MONO # 0.5 (0.1-0.6); MONO % 9.7 % (1.7-9.3); REDCELL DISTRIBUTION WIDTH-CV 17.9 % (11.5-14.5)
[2019-08-17 19:58] LABS: ALANINE AMINOTRANSFERASE 21 U/L (9-52); ALBUMIN 4.7 gm/dL (3.5-5.0); ALKALINE PHOSPHATASE 103 U/L (50-136); ANION GAP 15 mmol/L (7-16); AST,SGOT 69 U/L (15-37); BILIRUBIN,TOTAL 10.7 mg/dL (0.0-1.0); BLOOD UREA NITROGEN 16 mg/dL (7-17); CALCIUM 8.8 mg/dL (8.4-10.2); CARBON DIOXIDE 32 mmol/L (22-30); CREATININE, serum 0.68 (0.52-1.25); GLUCOSE 130 mg/dL (74-106); LIPASE 140 U/L (23-300); MAGNESIUM 1.1 mg/dL (1.6-2.3); SODIUM 134 mmol/L (137-145); TOTAL PROTEIN 8.2 gm/dL (6.4-8.2)
[2019-08-17 20:07] LABS: ALCOHOL(ethanol),MEDICAL < 10 mg/dL; CHLORIDE 88 mmol/L (98-107); POTASSIUM 2.4 mmol/L (3.4-5.0)
[2019-08-17 20:19] LABS: HEMATOCRIT 30.2 % (37.0-47.0)
[2019-08-17 20:24] LABS: PLATELET COUNT 35 K/mm3 (130-400)
[2019-08-17 20:28] LABS: ACETONE,SERUM NEGATIVE
[2019-08-17 21:10] LABS: INR 1.9 (0.8-3.0); PROTHROMBIN TIME 23.1 SECONDS (9.7-12.8)
[2019-08-17] MEDS ORDERED: CELEXA10 MG PO (22:50)
--- NOTE | 2019-08-17 23:56 | NUR ---
PT HAS NOT YET VOIDED
[2019-08-18] VITALS (903 sets, daily range): BP systolic 109–128; BP diastolic 63–84; PULSE 84–99; TEMP 98–98.8; O2SAT 91–100
[2019-08-18 01:10] LABS: COLLECTION METHOD CLEAN CATCH
[2019-08-18 01:19] LABS: MUCOUS Present /lpf; PH 6 (5-8); SQUAMOUS EPITHELIAL 0-2 /hpf; URINE APPEARANCE Cloudy; URINE BACTERIA Many /hpf; URINE BILIRUBIN Positive (NEGATIVE); URINE BLOOD Negative (NEGATIVE); URINE COLOR Amber; URINE GLUCOSE Negative (NEGATIVE); URINE KETONE Trace (NEGATIVE); URINE LEUKOCYTE ESTERASE Negative (NEGATIVE); URINE NITRATE Negative (NEGATIVE); URINE PROTEIN(semi-quant) 1+ (NEGATIVE); URINE RBC 0-2 /hpf; URINE UROBILINOGEN >=4.0 mg/dL (NEGATIVE)
[2019-08-18 06:41] LABS: MEAN CELL VOLUME 87 fl (80.0-100.0); MEAN CORPUSCULAR HGB CONC 33 g/dl (33.0-37.0); MEAN PLATELET VOLUME 11.3 fl (7.4-10.4); RED BLOOD COUNT 2.97 M/mm3 (4.10-5.30); REDCELL DISTRIBUTION WIDTH-CV 18.1 % (11.5-14.5)
[2019-08-18 06:50] LABS: BILIRUBIN,TOTAL 8.1 mg/dL (0.0-1.0); CALCIUM 8.4 mg/dL (8.4-10.2); CREATININE, serum 0.61 (0.52-1.25); MAGNESIUM 2.4 mg/dL (1.6-2.3); POTASSIUM 3.8 mmol/L (3.4-5.0)
[2019-08-18 06:52] LABS: HEMATOCRIT 25.7 % (37.0-47.0); HEMOGLOBIN 8.5 g/dl (12.5-16.0); MEAN CORPUSCULAR HEMOGLOBIN 29 pg (27.0-31.0); PLATELET COUNT 32 K/mm3 (130-400)
--- NOTE | 2019-08-18 07:15 | NUR ---
Patient report recieved from DAPHNEY Rabago. Patient denies needs at this time. Care assumed.
[2019-08-18 07:51] LABS: BAND 7 % (0-10); BASOPHIL 1 % (0-2); LYMPHOCYTE 2 % (20.0-51.0); NEUTROPHILS 87 % (42.0-75.2); PLATELET ESTIMATE DECREASED (NORMAL); TEAR DROP CELLS 1+
[2019-08-18 07:52] LABS: OVALOCYTES 1+; SCHISTOCYTES 1+
--- NOTE | 2019-08-18 11:05 | NUR ---
Dr. Astorga rounds on patient at this time. Orders as entered CPOE.
--- NOTE | 2019-08-18 13:15 | NUR ---
Patient with report of emesis x3 today. States she has vomited in the trashcan. When nurse investigates and finds no emesis patient states "It wasn't much. More just like spit and I'm nauseous." Patient provided PRN sarahan as documented in OCT.
[2019-08-18 16:35] LABS: TRICYCLIC ANTIDEPRESS URINE NEGATIVE
[2019-08-19] VITALS (457 sets, daily range): BP systolic 102–119; BP diastolic 55–69; PULSE 85–102; TEMP 98.1–99.1; O2SAT 90–100
[2019-08-19 06:01] LABS: BASO % 0.5 % (0.0-2.0); EOS # 0.1 (0.0-0.7); EOS % 2.5 % (0-4.0); GRAN # 2.4 (1.4-6.5); GRAN % 59.3 % (42.2-75.2); LYMPH % 25.1 % (20.0-51.0); MEAN CELL VOLUME 87 fl (80.0-100.0); MEAN CORPUSCULAR HGB CONC 32 g/dl (33.0-37.0); MEAN PLATELET VOLUME 12.5 fl (7.4-10.4); MONO # 0.5 (0.1-0.6); MONO % 12.3 % (1.7-9.3); RED BLOOD COUNT 2.73 M/mm3 (4.10-5.30)
[2019-08-19 06:03] LABS: HEMATOCRIT 23.8 % (37.0-47.0); HEMOGLOBIN 7.7 g/dl (12.5-16.0); MEAN CORPUSCULAR HEMOGLOBIN 28 pg (27.0-31.0)
[2019-08-19 06:05] LABS: PLATELET COUNT 37 K/mm3 (130-400)
[2019-08-19 06:14] LABS: ALBUMIN 3.5 gm/dL (3.5-5.0); BILIRUBIN,TOTAL 5.7 mg/dL (0.0-1.0); CREATININE, serum 0.61 (0.52-1.25); MAGNESIUM 1.6 mg/dL (1.6-2.3); TOTAL PROTEIN 6.1 gm/dL (6.4-8.2)
[2019-08-19 06:17] LABS: POTASSIUM 2.8 mmol/L (3.4-5.0)
--- NOTE | 2019-08-19 07:15 | NUR ---
BEDSIDE REPORT RECEIVED FROM DAPHNEY GONSALEZ. PATIENT LYING IN BED WITH NO COMPLAINTS. CARE TAKEN OVER AT THIS TIME.
--- NOTE | 2019-08-19 09:16 | NUR ---
Initial visit; Patient thanked Environmental Sampling Technician for looking in on her and offering God's blessings.
--- NOTE | 2019-08-19 12:16 | NUR ---
REPORT GIVEN TO DAPHNEY CALIX. PATIENT WILL TRANSFER TO ROOM 357
--- NOTE | 2019-08-19 13:23 | NUR ---
Pt arrived to room 357 at this time. She is A/O x4. Her breathing is even and unlabored on RA. Pt denies SOB. Pt denies any pain at this time. No N/V currently, working on eating lunch. Pt denies hallucinations. No tremors visualized. No needs at this time. Call light within reach.
--- NOTE | 2019-08-19 19:24 | NUR ---
Pt rested well after arriving to the floor. Appetite was good during the day. No Ativan needed. Report given to DAPHNEY Yap.
--- NOTE | 2019-08-19 20:30 | NUR ---
Initial shift assessment done- detox score 2--ativan not required, denies feeling anxious, no tremors noted, Up in room on own- steady on feet, repeat K+ 3.6- protocol followed with 2 doses to give-- will have rechecked in the AM Left wrist INT leaking-removed. Still has INT to R/AC
[2019-08-20 00:15] VITALS: BP 106/63; PULSE 94; TEMP 98.3
[2019-08-20 02:33] VITALS: BP 107/57; PULSE 104; TEMP 98.4
[2019-08-20 05:55] VITALS: BP 108/59; PULSE 99; TEMP 99
--- NOTE | 2019-08-20 07:00 | NUR ---
Did not last night- calm, doing some reading etc, did walk the halls at times- states she usually goes to sleep around this time in the morning- VSS,Did not require any Ativan per detox protocol.
[2019-08-20 08:00] VITALS: BP 95/51; PULSE 90; TEMP 99.1
--- NOTE | 2019-08-20 08:00 | NUR ---
Assessment complete. Patient sitting up for breakfast. IV site CD&I, slushed well. Patient has no complaints of pain or discomfort at this time. Patient is aware of her POC. No further needs were expressed. Call light is within reach.
[2019-08-20 08:02] LABS: BASO % 0.9 % (0.0-2.0); EOS # 0.2 (0.0-0.7); EOS % 3.4 % (0-4.0); GRAN # 2.6 (1.4-6.5); GRAN % 58.4 % (42.2-75.2); LYMPH # 0.9 (1.2-3.4); LYMPH % 20.6 % (20.0-51.0); MEAN CELL VOLUME 88 fl (80.0-100.0); MEAN CORPUSCULAR HGB CONC 32 g/dl (33.0-37.0); MEAN PLATELET VOLUME 12.9 fl (7.4-10.4); MONO # 0.7 (0.1-0.6); MONO % 16.5 % (1.7-9.3); REDCELL DISTRIBUTION WIDTH-CV 18.4 % (11.5-14.5)
[2019-08-20 08:10] LABS: ALBUMIN 3.7 gm/dL (3.5-5.0); BILIRUBIN,TOTAL 4.4 mg/dL (0.0-1.0); CALCIUM 8.3 mg/dL (8.4-10.2); CREATININE, serum 0.54 (0.52-1.25); MAGNESIUM 1.7 mg/dL (1.6-2.3); PHOSPHOROUS 3.3 mg/dL (2.5-4.5); POTASSIUM 3.5 mmol/L (3.4-5.0); TOTAL PROTEIN 6.4 gm/dL (6.4-8.2)
[2019-08-20 08:38] LABS: HEMATOCRIT 25.6 % (37.0-47.0); HEMOGLOBIN 8.2 g/dl (12.5-16.0); MEAN CORPUSCULAR HEMOGLOBIN 28 pg (27.0-31.0)
[2019-08-20 08:39] LABS: PLATELET COUNT 44 K/mm3 (130-400)
[2019-08-20 10:00] VITALS: BP 127/58; PULSE 88; TEMP 98.8
[2019-08-20] MEDS ORDERED: ALDACTONE 25MG25 M1 PO (12:26)
[2019-08-20] MEDS ORDERED: OMNICEF 300MG300 MG PO (12:28)
[2019-08-20] MEDS ORDERED: ZOFRAN 4MG T4 MG/TAB PO (12:28)
--- NOTE | 2019-08-20 15:00 | NUR ---
Patient escorted of the floor at this time. Discharge instruction discussed.
== END 2019-08-20 15:05 | disposition home or self-care (01) | DRG 897 ==
LOC: COL.ER 18:33 → MEDICAL 20:55 → ICU 20:55 → MEDICAL 08-19 12:27
PROVIDERS: Emergency Medicine; Nurse Practitioner Family
DX: F10.239 Alcohol dependence with withdrawal, unspecified (principal); E87.3 Alkalosis; E44.0 Moderate protein-calorie malnutrition; D61.818 Other pancytopenia; K70.30 Alcoholic cirrhosis of liver without ascites; K70.10 Alcoholic hepatitis without ascites; D69.6 Thrombocytopenia, unspecified; E87.6 Hypokalemia; E83.42 Hypomagnesemia; E83.39 Other disorders of phosphorus metabolism; R73.9 Hyperglycemia, unspecified; Z68.21 Body mass index [BMI] 21.0-21.9, adult; K20.9 Esophagitis, unspecified; F17.210 Nicotine dependence, cigarettes, uncomplicated
CPT/HCPCS: 99223-AI; 99232-AI; 99233-AI; 99239; A4216; J0696; J2060; J2405; J3475; J3480; J7030; J7050; J7512

== ENCOUNTER 2019-12-24 15:58 | Inpatient (IN) | payer MEDICAID ==
[~2019-12-24] VITALS: Ht 167.6 cm; Wt 67.2 kg
[~2019-12-24 15:58] MED LIST changes: +ALDACTONE 25MG25 M1 PO; +OMNICEF 300MG300 MG PO; +ZOFRAN 4MG T4 MG/TAB PO
[2019-12-24] MEDS ORDERED: ATIVAN 0.50.5 MG/TAB PO (16:23)
[2019-12-24 16:36] LABS: BASO % 0.5 % (0.0-2.0); EOS # 0.5 (0.0-0.7); EOS % 7.8 % (0-4.0); GRAN # 3.4 (1.4-6.5); GRAN % 58.5 % (42.2-75.2); LYMPH # 1.5 (1.2-3.4); LYMPH % 24.7 % (20.0-51.0); MEAN CELL VOLUME 91 fl (80.0-100.0); MEAN CORPUSCULAR HGB CONC 34 g/dl (33.0-37.0); MEAN PLATELET VOLUME 9.1 fl (7.4-10.4); MONO # 0.5 (0.1-0.6); MONO % 7.8 % (1.7-9.3); RED BLOOD COUNT 3.08 M/mm3 (4.10-5.30); REDCELL DISTRIBUTION WIDTH-CV 13.8 % (11.5-14.5)
[2019-12-24 16:49] LABS: COLLECTION METHOD CLEAN CATCH
[2019-12-24 16:49] LABS: HEMATOCRIT 27.9 % (37.0-47.0); HEMOGLOBIN 9.4 g/dl (12.5-16.0); MEAN CORPUSCULAR HEMOGLOBIN 31 pg (27.0-31.0)
[2019-12-24 16:50] LABS: ALANINE AMINOTRANSFERASE 44 U/L (4-34); ALKALINE PHOSPHATASE 90 U/L (50-136); ANION GAP 10 mmol/L (7-16); AST,SGOT 107 U/L (15-37); BILIRUBIN,TOTAL 4.3 mg/dL (0.0-1.0); BLOOD UREA NITROGEN 5 mg/dL (7-17); CALCIUM 8.7 mg/dL (8.4-10.2); CARBON DIOXIDE 25 mmol/L (22-30); CHLORIDE 109 mmol/L (98-107); CREATININE, serum 0.67 (0.52-1.25); GLUCOSE 111 mg/dL (74-106); LIPASE 310 U/L (23-300); MAGNESIUM 1.2 mg/dL (1.6-2.3); PLATELET COUNT 45 K/mm3 (130-400); POTASSIUM 3.4 mmol/L (3.4-5.0); SODIUM 143 mmol/L (137-145)
[2019-12-24 16:55] LABS: ALCOHOL(ethanol),MEDICAL 358 mg/dL; C-REACTIVE PROTEIN < 0.5 mg/dL (0.0-0.9)
[2019-12-24 16:58] LABS: MUCOUS Present /lpf; PH 8 (5-8); SQUAMOUS EPITHELIAL None Seen /hpf; URINE APPEARANCE Clear; URINE BACTERIA None Seen /hpf; URINE BILIRUBIN Negative (NEGATIVE); URINE BLOOD Negative (NEGATIVE); URINE COLOR Amber; URINE GLUCOSE Negative (NEGATIVE); URINE KETONE Negative (NEGATIVE); URINE LEUKOCYTE ESTERASE Negative (NEGATIVE); URINE NITRATE Negative (NEGATIVE); URINE PROTEIN(semi-quant) Negative (NEGATIVE); URINE RBC 0-2 /hpf; URINE UROBILINOGEN >=4.0 mg/dL (NEGATIVE)
[2019-12-24 17:19] LABS: INR 1.5 (0.8-3.0); PROTHROMBIN TIME 16.4 SECONDS (9.7-12.8)
[2019-12-24 21:00] VITALS: BP 120/75; PULSE 103
[2019-12-24 22:01] VITALS: BP 120/75; PULSE 103; TEMP 98.7
[2019-12-24 23:00] VITALS: PULSE 89
--- NOTE | 2019-12-24 23:11 | NUR ---
Report received from Nae at 2136. Patient arrived in ICU via wheelchair at 2148. Patient able to transfer to bed per self without incident. Patient complains of pain in BLE from swelling and that she has welts from poison theresa that hurt, overall pain 03/12. No other complaints at this time.
[2019-12-25] VITALS (13 sets, daily range): BP systolic 108–130; BP diastolic 56–77; PULSE 86–96; TEMP 97.7–99.2; O2SAT 100
[2019-12-25 00:35] LABS: TRICYCLIC ANTIDEPRESS URINE NEGATIVE
[2019-12-25 07:18] LABS: BASO % 0.8 % (0.0-2.0); EOS # 0.2 (0.0-0.7); EOS % 4.1 % (0-4.0); GRAN # 2.9 (1.4-6.5); GRAN % 58.5 % (42.2-75.2); LYMPH # 1.3 (1.2-3.4); LYMPH % 26.7 % (20.0-51.0); MEAN CELL VOLUME 91 fl (80.0-100.0); MEAN CORPUSCULAR HGB CONC 33 g/dl (33.0-37.0); MEAN PLATELET VOLUME 10.8 fl (7.4-10.4); MONO # 0.5 (0.1-0.6); MONO % 9.7 % (1.7-9.3); PLATELET COUNT 53 K/mm3 (130-400); RED BLOOD COUNT 2.99 M/mm3 (4.10-5.30); REDCELL DISTRIBUTION WIDTH-CV 13.8 % (11.5-14.5)
[2019-12-25 07:22] LABS: HEMATOCRIT 27.3 % (37.0-47.0); MEAN CORPUSCULAR HEMOGLOBIN 30 pg (27.0-31.0)
[2019-12-25 07:29] LABS: ALBUMIN 3.9 gm/dL (3.5-5.0); BILIRUBIN,TOTAL 4.5 mg/dL (0.0-1.0); CALCIUM 8.8 mg/dL (8.4-10.2); CREATININE, serum 0.58 (0.52-1.25); MAGNESIUM 1.8 mg/dL (1.6-2.3); POTASSIUM 3.9 mmol/L (3.4-5.0); TOTAL PROTEIN 6.8 gm/dL (6.4-8.2)
--- NOTE | 2019-12-25 07:40 | NUR ---
Bedside report received by DAPHNEY Iglesias. Patient is resting in bed. Call light and bedside table are within reach. Will continue to monitor patient throughout shift.
--- NOTE | 2019-12-25 16:54 | NUR ---
Pt arrives to medical unit rm 354 from ICU via WC accompanied by FIBER HEEL PIECE SHAPER who will remain with pt as sitter per protocol. Pt awake and alert, slightly drowsy, ambulates from WC to bed with steady gait. Pt with generalized jaundice. Edema to Bilat lower ext. Abd distended, soft to palpation. Saline lock IV to left forearm without s/s of complications. Call light in reach.
--- NOTE | 2019-12-25 17:00 | NUR ---
Report given to DAPHNEY Leyva. Patient will transfer to medical floor, room 354.
--- NOTE | 2019-12-25 17:10 | NUR ---
Patient transferred to medical floor, room 354 via wheelchair by EMMA Garcia. Patient's belongings have been cleared from the room.
--- NOTE | 2019-12-25 19:46 | NUR ---
Assessment complete. Resting in bed. Reports "tired" and that she did not sleep last night. Denies needs at this time.
[2019-12-26 00:50] VITALS: BP 100/51; PULSE 87; TEMP 98.7
[2019-12-26 04:14] VITALS: BP 95/45; PULSE 83; TEMP 98.4
[2019-12-26 07:12] VITALS: BP 101/58; PULSE 65; TEMP 97.9
[2019-12-26 08:05] LABS: BASO % 0.6 % (0.0-2.0); EOS # 0.3 (0.0-0.7); EOS % 7.3 % (0-4.0); GRAN # 2.3 (1.4-6.5); GRAN % 64.6 % (42.2-75.2); LYMPH # 0.7 (1.2-3.4); LYMPH % 20.1 % (20.0-51.0); MEAN CELL VOLUME 91 fl (80.0-100.0); MEAN CORPUSCULAR HGB CONC 35 g/dl (33.0-37.0); MEAN PLATELET VOLUME 11.2 fl (7.4-10.4); MONO # 0.2 (0.1-0.6); MONO % 6.8 % (1.7-9.3); RED BLOOD COUNT 2.67 M/mm3 (4.10-5.30); REDCELL DISTRIBUTION WIDTH-CV 13.4 % (11.5-14.5)
[2019-12-26 08:17] LABS: ALBUMIN 3.5 gm/dL (3.5-5.0); BILIRUBIN,TOTAL 6.5 mg/dL (0.0-1.0); CALCIUM 8.6 mg/dL (8.4-10.2); CREATININE, serum 0.57 (0.52-1.25); MAGNESIUM 1.3 mg/dL (1.6-2.3); POTASSIUM 3.5 mmol/L (3.4-5.0); TOTAL PROTEIN 6.3 gm/dL (6.4-8.2)
[2019-12-26 08:21] LABS: INR 1.6 (0.8-3.0); PROTHROMBIN TIME 17.5 SECONDS (9.7-12.8)
[2019-12-26 08:27] LABS: HEMATOCRIT 24.2 % (37.0-47.0); HEMOGLOBIN 8.4 g/dl (12.5-16.0); MEAN CORPUSCULAR HEMOGLOBIN 31 pg (27.0-31.0); PLATELET COUNT 41 K/mm3 (130-400)
--- NOTE | 2019-12-26 09:00 | NUR ---
Assessment complete. Pt resting in bed upon entry, gets up and ambulates to bathroom and back to bed with steady gait, standby assist. Pt A&O x 3, denies pain at this time. Saline lock IV to left forearm without s/s of complications. No further needs reported. Call light in reach.
[2019-12-26] MEDS ORDERED: XIFAXAN550 MG PO (09:59)
[2019-12-26] MEDS ORDERED: ENULOSE10 GM/15 M PO (10:00)
[2019-12-26] MEDS ORDERED: LASIX 20MG TABL20 MG PO (10:01)
[2019-12-26 11:24] VITALS: BP 101/51; PULSE 98; TEMP 98.3
--- NOTE | 2019-12-26 14:00 | NUR ---
IV discontinued from left forearm with tip intact. Home medications and personal belongings returned to pt. Discharge instructions reviewed with pt regarding medication changes and follow-up appointments, and safety plan. Pt verbalizes understanding. Pt discharged home, escorted out of facility via WC accompanied by nurse, pt's mom providing ride.
== END 2019-12-26 14:20 | disposition home or self-care (01) | DRG 433 ==
LOC: COL.ER 15:58 → ICU 18:07 → MEDICAL 12-25 16:58
PROVIDERS: Family Medicine; Internal Medicine; Physician Assistant; ADMIT Student in an Organized Health Care Education/Training Program
DX: K70.30 Alcoholic cirrhosis of liver without ascites (principal); S22.31XA Fracture of one rib, right side, initial encounter for closed fracture; R45.851 Suicidal ideations; K76.6 Portal hypertension; F10.129 Alcohol abuse with intoxication, unspecified; Y90.8 Blood alcohol level of 240 mg/100 ml or more; D69.6 Thrombocytopenia, unspecified; S30.0XXA Contusion of lower back and pelvis, initial encounter; F32.9 Major depressive disorder, single episode, unspecified; Z91.81 History of falling; D73.2 Chronic congestive splenomegaly; R60.0 Localized edema; K70.40 Alcoholic hepatic failure without coma; Z91.128 Patient's intentional underdosing of medication regimen for other reason; I86.8 Varicose veins of other specified sites; D64.9 Anemia, unspecified; E87.6 Hypokalemia; E83.42 Hypomagnesemia; K29.20 Alcoholic gastritis without bleeding; K20.8 Other esophagitis; F10.10 Alcohol abuse, uncomplicated; W19.XXXA Unspecified fall, initial encounter
CPT/HCPCS: 99223-AI; 99233-AI; 99239; J1940; J2060; J2405; J3010; J3475; Q9967

== ENCOUNTER 2020-05-04 06:53 | Day surgery (SDC) | payer MEDICAID ==
[~2020-05-04] VITALS: Ht 167.6 cm; Wt 65.2 kg
[~2020-05-04 06:53] MED LIST changes: +ATIVAN 0.50.5 MG/TAB PO; +ENULOSE10 GM/15 M PO; +LASIX 20MG TABL20 MG PO
[2020-05-04 07:11] VITALS: BP 127/65; PULSE 85; TEMP 97.9
[2020-05-04] MEDS ORDERED: KRISTALOSE20 GM/PACK PO (07:16)
[2020-05-04] MEDS ORDERED: LASIX 20MG TABL20 MG PO (07:16)
[2020-05-04] MEDS ORDERED: MAG-OX 400400 MG/TAB PO (07:17)
[2020-05-04] MEDS ORDERED: PROTONIX 40MG T40 MG PO (07:18)
[2020-05-04] MEDS ORDERED: ZOFRAN 4MG T4 MG/TAB PO (07:18)
[2020-05-04] MEDS ORDERED: XIFAXAN550 MG PO (07:19)
[2020-05-04] MEDS ORDERED: ALDACTONE 100M100 MG PO (07:21)
[2020-05-04] MEDS ORDERED: K-DUR20 MEQ PO (07:21)
--- NOTE | 2020-05-04 07:33 | NUR ---
Initial visit; Patient thanked Mattress Weaver for remembering her and offering prayer for good results from her tests and complete healing from any health issues.
[2020-05-04 08:45] VITALS: BP 128/69; PULSE 81; TEMP 96.8
--- NOTE | 2020-05-04 08:45 | NUR ---
Pt to GI bay 2 via cart from ENDO. Pt drowsy, but awake. Pt denies any pain or nausea. Pt denies need for any po fluid or food at this time. Will continue to monitor. Call light within reach.
[2020-05-04 09:00] VITALS: BP 131/70; PULSE 83
--- NOTE | 2020-05-04 09:00 | NUR ---
Pt resting. Denies pain or nausea. Denies needs. Call light within reach.
[2020-05-04 09:15] VITALS: BP 136/77; PULSE 77
--- NOTE | 2020-05-04 09:15 | NUR ---
Pt continues to rest. Denies needs. Call light within reach.
--- NOTE | 2020-05-04 09:30 | NUR ---
IV site discontinued with all parts intact. Discharge instructions reviewed. Pt voices understanding. Pt up to dress. Call light within reach.
--- NOTE | 2020-05-04 09:40 | NUR ---
Pt escorted to private car via wheel chair. Pt accompanied home by her mother.
== END 2020-05-04 09:40 | disposition home or self-care (01) ==
LOC: SDCO 06:53
DX: Z12.11 Encounter for screening for malignant neoplasm of colon (principal); Z86.010 Personal history of colon polyps; K64.8 Other hemorrhoids; K74.60 Unspecified cirrhosis of liver; I85.00 Esophageal varices without bleeding; K29.30 Chronic superficial gastritis without bleeding; J45.909 Unspecified asthma, uncomplicated; K72.90 Hepatic failure, unspecified without coma; E66.9 Obesity, unspecified; G47.33 Obstructive sleep apnea (adult) (pediatric); G40.909 Epilepsy, unspecified, not intractable, without status epilepticus; F32.9 Major depressive disorder, single episode, unspecified; D64.9 Anemia, unspecified; Z20.828 Contact with and (suspected) exposure to other viral communicable diseases
CPT/HCPCS: J2704; J7120

== ENCOUNTER 2020-06-15 05:55 | Day surgery (SDC) | payer MEDICAID ==
[~2020-06-15] VITALS: Ht 167.6 cm; Wt 66.4 kg
[~2020-06-15 05:55] MED LIST changes: +ALDACTONE 100M100 MG PO; +K-DUR20 MEQ PO; +KRISTALOSE20 GM/PACK PO
[2020-06-15 06:14] VITALS: BP 96/62; PULSE 94; TEMP 97.7
[2020-06-15 07:30] VITALS: BP 111/62; PULSE 90; TEMP 97.8
--- NOTE | 2020-06-15 07:30 | NUR ---
Pt to GI bay 2 via cart from ENDO. Pt awake and alert. Pt ambulates to recliner with stand by assistance. Warm blankets provided. Pt wanting to rest. Call light within reach.
[2020-06-15 07:45] VITALS: BP 118/68; PULSE 85
--- NOTE | 2020-06-15 07:45 | NUR ---
Pt continues to rest. Denies needs. Call light within reach.
[2020-06-15 08:00] VITALS: BP 114/69; PULSE 80
--- NOTE | 2020-06-15 08:00 | NUR ---
Pt continues to rest. Denies needs. Call light within reach.
[2020-06-15 08:15] VITALS: BP 118/72; PULSE 84
--- NOTE | 2020-06-15 08:15 | NUR ---
Pt up to restroom with stand by assist. Pt voids without difficulties. Pt back to room. Call light within reach.
--- NOTE | 2020-06-15 08:25 | NUR ---
Discharge instructions reviewed. Pt voices understanding. IV site discontinued with all parts intact. Pt up to dress. Call light within reach.
--- NOTE | 2020-06-15 08:35 | NUR ---
Pt escorted to private car via wheel chair. Pt accompanied home by her mother.
== END 2020-06-15 08:35 | disposition home or self-care (01) ==
LOC: SDCO 05:55
DX: I85.00 Esophageal varices without bleeding (principal); K74.60 Unspecified cirrhosis of liver; I10 Essential (primary) hypertension; Z20.828 Contact with and (suspected) exposure to other viral communicable diseases; K72.90 Hepatic failure, unspecified without coma; G47.33 Obstructive sleep apnea (adult) (pediatric); G93.40 Encephalopathy, unspecified; R18.8 Other ascites; J45.909 Unspecified asthma, uncomplicated; R60.9 Edema, unspecified; Z87.891 Personal history of nicotine dependence; Z79.899 Other long term (current) drug therapy
CPT/HCPCS: J2405; J2704; J7030

== ENCOUNTER 2020-07-20 08:48 | Day surgery (SDC) | payer MEDICAID ==
[~2020-07-20] VITALS: Ht 167.6 cm; Wt 67.3 kg
[2020-07-20 09:32] VITALS: BP 100/61; PULSE 68; TEMP 98.3
[2020-07-20] MEDS ORDERED: TYLENOL 325MG325 MG PO (09:32)
--- NOTE | 2020-07-20 10:27 | NUR ---
Initial visit; Patient thanked Waste Paper Hammermill Operator for offering prayer and encouragement prior to her procedure and wishing her well and a happy, healthy New Year.
[2020-07-20 11:10] VITALS: BP 125/70; PULSE 82; TEMP 98.3
--- NOTE | 2020-07-20 11:10 | NUR ---
Patient arrives to [facility] via cart, accompanied by Endo RN. She is alert and oriented. SHe ambulates to the chair in her room with steady gait. She denies pain or nausea, just discomfort from the banding. She is offered and receives ice chips. Does not want other food/drink.
[2020-07-20 11:25] VITALS: BP 122/67; PULSE 66
--- NOTE | 2020-07-20 11:25 | NUR ---
Patient is resting comfortably in room. Tolerating ice chips well.
[2020-07-20 11:40] VITALS: BP 120/69; PULSE 70
--- NOTE | 2020-07-20 12:03 | NUR ---
Patient has met discharge criteria. Discharge instructions are discussed. She denies any questions and verbalizes understanding. PIV is removed with catheter intact and hemostasis achieved. She changes to her clothing independently. She is escorted to the exit via wheelchair by staff and discharged to home with ride in private vehicle at 1203.
== END 2020-07-20 12:03 | disposition home or self-care (01) ==
LOC: SDCO 08:48
DX: I85.00 Esophageal varices without bleeding (principal); J45.909 Unspecified asthma, uncomplicated; K75.9 Inflammatory liver disease, unspecified; K74.60 Unspecified cirrhosis of liver; I12.9 Hypertensive chronic kidney disease with stage 1 through stage 4 chronic kidney disease, or unspecified chronic kidney disease; G47.33 Obstructive sleep apnea (adult) (pediatric); F32.9 Major depressive disorder, single episode, unspecified; F41.9 Anxiety disorder, unspecified; N18.9 Chronic kidney disease, unspecified; Z20.828 Contact with and (suspected) exposure to other viral communicable diseases; G25.81 Restless legs syndrome; Z87.891 Personal history of nicotine dependence
CPT/HCPCS: J2704; J7030

== ENCOUNTER 2020-08-24 07:44 | Day surgery (SDC) | payer MEDICAID ==
[~2020-08-24] VITALS: Ht 167.6 cm; Wt 72.0 kg
[~2020-08-24 07:44] MED LIST changes: +TYLENOL 325MG325 MG PO
[2020-08-24 07:58] VITALS: BP 111/60; PULSE 73; TEMP 98.7
[2020-08-24 09:05] VITALS: BP 135/78; PULSE 81
--- NOTE | 2020-08-24 09:05 | NUR ---
Pt to GI bay 2 via cart from ENDO. Pt drowsy, but awake. Pt denies pain or nausea. Pt ambulates to recliner with stand by assistance. Warm blanket provided. Pt denies need for food or drink. Will continue to monitor. Call light within reach.
[2020-08-24 09:20] VITALS: BP 135/78; PULSE 73
--- NOTE | 2020-08-24 09:20 | NUR ---
Pt continues to rest. Denies needs. Call light within reach.
[2020-08-24 09:35] VITALS: BP 134/77; PULSE 71
--- NOTE | 2020-08-24 09:35 | NUR ---
Pt resting. Denies needs. Call light within reach.
[2020-08-24 09:50] VITALS: BP 131/77; PULSE 67
--- NOTE | 2020-08-24 09:50 | NUR ---
into speak with pt. Pt denies needs. Call light within reach.
--- NOTE | 2020-08-24 10:10 | NUR ---
Discharge instructions reviewed. Pt voices undertanding. IV site discontinued with all parts intact. Pt up to dress. Call light within reach.
--- NOTE | 2020-08-24 10:15 | NUR ---
Pt escorted to private car via wheel chair. Pt accompanied home by her mother.
== END 2020-08-24 10:15 | disposition home or self-care (01) ==
LOC: SDCO 07:44
DX: I85.10 Secondary esophageal varices without bleeding (principal); K74.60 Unspecified cirrhosis of liver; K29.30 Chronic superficial gastritis without bleeding; F32.9 Major depressive disorder, single episode, unspecified; F41.9 Anxiety disorder, unspecified
CPT/HCPCS: J2704; J7030

== ENCOUNTER → 2021-08-20 | Outpatient (CLI) | payer MEDICAID | LOC: COL.RAD 06:57 | DX: K70.31 Alcoholic cirrhosis of liver with ascites (principal); R94.5 Abnormal results of liver function studies; R16.1 Splenomegaly, not elsewhere classified; K82.4 Cholesterolosis of gallbladder ==

== ENCOUNTER → 2021-10-02 | Outpatient (CLI) | payer MEDICAID | LOC: MC.RAD 08:04 | DX: Z12.31 Encounter for screening mammogram for malignant neoplasm of breast (principal) ==

== ENCOUNTER 2021-10-11 07:31 | Day surgery (SDC) | payer MEDICAID ==
[~2021-10-11] VITALS: Ht 167.6 cm; Wt 73.8 kg
[2021-10-11] MEDS ORDERED: ENULOSE10 GM/151 PO (08:12)
[2021-10-11] MEDS ORDERED: NEURONTIN300 MG/CAP PO (08:16)
[2021-10-11] MEDS ORDERED: PROAIR HFA0.09 MG/AC IH (08:16)
[2021-10-11 08:27] VITALS: BP 130/74; PULSE 80; TEMP 98.4
[2021-10-11 09:34] VITALS: BP 117/96; PULSE 77; TEMP 97.4
--- NOTE | 2021-10-11 09:34 | NUR ---
Writtent report obatined. Vitals obtained. Warm blanket provided. The patient requested a Spite w/ a warm muffin. Call roy is within reach at bedside. Warm blanket provided.
[2021-10-11 09:44] VITALS: BP 112/74; PULSE 77
--- NOTE | 2021-10-11 09:44 | NUR ---
Vitals obtained. The patient is still eating, but denies nausea. No vomiting.
[2021-10-11 09:59] VITALS: BP 117/64; PULSE 77
--- NOTE | 2021-10-11 09:59 | NUR ---
Vitals obtained. The patient expressed desire to be discharged. Call roy remains within reach.
[2021-10-11 10:14] VITALS: BP 105/64; PULSE 72
--- NOTE | 2021-10-11 10:14 | NUR ---
Vitals obtained. IV discontinued. Catheter tip intact. Pressure bandage applied. No redness or swelling noted. DC instructions and educational material was reviewed with the patient, who verbalized understanding and signed the related paperwork. The patient stated she did not have any questions or concerns and did not need assistance changing into her personal clothes. Call roy remains within reach.
--- NOTE | 2021-10-11 10:50 | NUR ---
The patient was escorted out to the patient entrence by Micheal via wheelchair. The patient has her DC packet and personal belongings. The patient was transferred into the care of Fariha, who is present to drive.
[2021-10-11 12:20] VITALS: BP 117/69; PULSE 77
== END 2021-10-11 10:50 | disposition home or self-care (01) ==
LOC: SDCO 07:31
DX: K70.31 Alcoholic cirrhosis of liver with ascites (principal); I85.10 Secondary esophageal varices without bleeding; Z79.899 Other long term (current) drug therapy
CPT/HCPCS: J2704; J7120

== ENCOUNTER → 2023-08-04 | Outpatient (CLI) | payer MEDICAID ==
[~2023-08-04] MED LIST changes: +ANTACID500 M1 PO; +CALCIUM CITRAT950 MG PO; +CAMPRAL333 M1; +DEPAKOTE 250MG250 MG PO; +ENULOSE10 GM/151 PO; -FOLIC ACID0.8 MG PO; +INDERAL 10MG10 MG PO; +LEADER CLE17 GM/Dose PO; +MIRAPEX 0.0.125 MG/T PO; +MOBIC 7.5MG7.5 MG PO; +NEURONTIN300 MG/CAP PO; +ONCOVITE1 TAB; +PROAIR HFA0.09 MG/AC IH; +PROAIR HFA0.09 MG/AC PO; +REVIA 50MG TABL50 MG PO; +SENNA-LAX8.6 MG PO; +TYLENOL 500MG500 MG PO; +VITAMIN C500 MG PO; +ZAROXOLYN5 MG PO; +ZYPREXA 5MG5 MG PO
== END ==
LOC: COL.RAD 09:37
DX: R25.1 Tremor, unspecified (principal); R41.89 Other symptoms and signs involving cognitive functions and awareness; K70.30 Alcoholic cirrhosis of liver without ascites
CPT/HCPCS: A9575

== ENCOUNTER → 2023-08-31 | Outpatient (CLI) | payer MEDICAID | LOC: COL.RAD 16:19 | DX: R16.1 Splenomegaly, not elsewhere classified (principal); K70.31 Alcoholic cirrhosis of liver with ascites; K76.82 Hepatic encephalopathy; R60.0 Localized edema ==

== ENCOUNTER → 2023-11-30 | Outpatient (CLI) | payer MEDICAID | LOC: COL.RAD 10:32 | DX: K74.60 Unspecified cirrhosis of liver (principal); K82.4 Cholesterolosis of gallbladder; D69.6 Thrombocytopenia, unspecified; D64.9 Anemia, unspecified; R16.1 Splenomegaly, not elsewhere classified ==